=== PATIENT | female | born 1965 | race Caucasian/White ===

== ENCOUNTER → 2023-10-02 14:39 | Outpatient (BNVA) | payer OTHER, SELFPAY | PROVIDERS: Visit Provider Nurse Practitioner | DX: I48.91 Unspecified atrial fibrillation (principal) ==

== ENCOUNTER → 2023-10-16 13:54 | Outpatient (REF) | payer OTHER, SELFPAY | LOC: HO.SL 13:54 | PROVIDERS: Visit Provider Nurse Practitioner | DX: Z13.89 Encounter for screening for other disorder (principal) ==

== ENCOUNTER → 2023-11-27 13:34 | Outpatient (BNVA) | payer OTHER, SELFPAY | PROVIDERS: PCP Internal Medicine ==

== ENCOUNTER → 2023-12-04 14:24 | Outpatient (BNVA) | payer OTHER, SELFPAY | PROVIDERS: PCP Internal Medicine; Visit Provider Physician Assistant ==

== ENCOUNTER → 2024-03-09 11:24 | Outpatient (BNV) | payer OTHER, SELFPAY | PROVIDERS: PCP Physician Assistant; Visit Provider Radiology Diagnostic Radiology | DX: N28.1 Cyst of kidney, acquired (principal) | CPT/HCPCS: 76775 ==

== ENCOUNTER 2024-04-13 18:20 | Emergency (ER) | payer OTHER, SELFPAY ==
--- NOTE | ~2024-04-13 | XR_ITS ---
CLINICAL HISTORY: cough, fever, chills 2 view chest x-ray Comparison: CR/SR - XR CHEST 2V - 09/23/23 12:03 EDT Findings: No consolidation or effusion. Heart size is normal. No acute fracture. IMPRESSION: 1. No acute findings. This document has been electronically signed by: Guillermo Smith MD on 04/13/2024 20:25:23
[2024-04-13 18:54] VITALS: BP 130/70; BP 161/101; PULSE 86; PULSE 90; RESP 18; TEMP 36.3; O2SAT 100; O2SAT 99; BMI 27.9
--- NOTE | 2024-04-13 19:31 | ED_ITS ---
HPI - URI/Sore Throat General Chief Complaint: Upper Respiratory Symptoms Stated Complaint: n/v, gen sickness, sweating shivering Time Seen by Provider: 04/13/24 19:26 Source: patient and EMS Mode of arrival: EMS Limitations: no limitations History of Present Illness ED Provider: Fela Gloria NP HPI Narrative: Patient is a 58-year-old female who presents emergency department via EMS for evaluation of ?symptoms?. She admits that she woke up this morning feeling generally unwell was experiencing sinus congestion, headache, body aches, joint pain, a nonproductive cough, tactile fever, chills, nausea, single episode of small clear emesis. She denies dizziness, lightheadedness, vision changes, neck pain, chest pain, shortness of breath, abdominal pain, diarrhea or constipation, genitourinary symptoms, numbness or tingling of the extremities. She states that her spouse as well as a co-worker been ill with similar symptoms but ?I always get it worse . Related Data Home Medications ?Medication ?Instructions ?Recorded ?Confirmed multivitamin 1 tab PO DAILY 12/04/23 01/07/24 Previous Rx's ?Medication ?Instructions ?Recorded aspirin 81 mg capsule 81 mg PO DAILY #30 caps 08/11/23 cyclobenzaprine 10 mg tablet 10 mg PO TID PRN muscle spasm 30 12/04/23 days #90 tabs folic acid 1 mg tablet 1 mg PO DAILY #30 tabs 01/23/24 prednisone 20 mg tablet See Rx Instructions PO DAILY #18 03/12/24 tabs diltiazem HCl 120 mg 120 mg PO DAILY 90 days #90 caps 03/29/24 capsule,extended release 24 hr (Cardizem CD) Allergies Allergy/AdvReac Type Severity Reaction Status Date / Time bee pollen [bee stings] Allergy Anaphylaxis Verified 04/13/24 19:01 peanut Allergy Anaphylaxis Verified 04/13/24 19:01 Review of Systems 2 Review of Systems: Yes all other systems are reviewed and are negative PMFSH Past Medical History Attestation statement: The following information was validated with the patient. Source: old records reviewed Medical History Low back pain radiating to lower extremity Atrial fibrillation Family History Family History Son Atrial fibrillation Social History Social History Household Members: Significant Other Housing: House Alcohol intake: current Alcohol intake frequency: holidays/special occasions only Alcohol type: beer Patient Tobacco Use Status: Never used Tobacco e-Cigarette/Vaping Use: Never Used Substance Use Type: Marijuana Advance Directives: No Advance Directives Information Provided: No Do you have a plan to hurt others: No Plan service: No Current occupational status: employed Current occupation: Customer service Current occupational exposures/hazards: No Cognitive needs: No Hearing needs: No Vision needs: Yes (glasses) Physical Exam 2 Vital Signs: Vital Signs: Last Vital Signs Temp 97.2 F 04/13/24 23:49 Pulse 92 04/13/24 23:49 Resp 20 04/13/24 23:49 BP 101/74 04/13/24 23:49 Pulse Ox 98 04/13/24 23:49 O2 Del Method Room Air 04/13/24 23:49 BMI result Body Mass Index 27.9 Appearance: Alert.?Oriented to person, place and time. No acute distress.?Normal affect. Eyes: Pupils equal, round and reactive to light.? ENT: TM normal bilaterally. Pharynx normal.?? Neck: Normal inspection.? Neck supple.??No cervical adenopathy CVS: Heart sounds normal. Normal heart rate and rhythm.? Pulses normal.?? Respiratory: No respiratory distress.? Lung sounds clear to auscultation bilaterally?? Abdomen: Soft and non-tender. Normoactive bowel sounds. Skin: Skin warm and dry.? Normal skin color.? ? Extremities: No lower extremity edema.? Neuro: Moves all extremities spontaneously. Sensation intact bilaterally. No motor deficits. Ambulates with normal steady gait. Medications Administered Discontinued Medications Generic Name Dose Route Start Last Admin Trade Name Freq PRN Reason Stop Dose Admin Sodium Chloride 1,000 mls @ 999 mls/hr 04/13/24 20:00 04/13/24 21:30 Ns IV 04/13/24 21:00 Infused .Q1H1M BRYCE Infusion Potassium Chloride 10 meq in 100 mls @ 100 mls/hr 04/13/24 20:43 04/13/24 22:02 Potassium Chloride/H20 IV 04/13/24 21:42 0 mls/hr ONCE ONE Infusion Ketorolac Tromethamine 15 mg 04/13/24 19:50 04/13/24 20:13 Ketorolac Tromethamine 15 Mg/Ml Vial IVPUSH 04/13/24 19:51 15 mg ONCE ONE Administration Ondansetron HCl 4 mg 04/13/24 19:50 04/13/24 20:13 Ondansetron Hcl 4 Mg/2 Ml Vial IVPUSH 04/13/24 19:51 4 mg ONCE ONE Administration Potassium Chloride 40 meq 04/13/24 20:43 04/13/24 21:33 Potassium Chloride Packet 20 Meq Packet PO 04/13/24 20:44 40 meq ONCE ONE Administration Medical Decision Making Medical Decision Making [facility] Narrative: Patient is a a 58-year-old female past medical history of atrial fibrillation presents emergency department for evaluation of flu-like symptoms as per HPI. Overall she appears anxious, she is mildly hypertensive, she is afebrile without tachycardia tachypnea or hypoxia. LS CTA. Benign abdominal examination. COVID-19/influenza/RSV testing is negative. At this time history and physical exam not consistent with ACS/PE. CXR was obtained in his without consolidation or infiltrate to suggest pneumonia Well-appearing, nontoxic, afebrile, no tachycardia or tachypnea/hypoxia. Speaking clear full sentences, ambulatory with steady gait. Concern for viral syndrome, lower suspicion for acute abdominal pathology. CBC is without leukocytosis anemia, mild thrombocytopenia. Initially hypokalemic at 3.0, replaced with 10 mEq IV, 40 mEq p.o., initial metabolic acidosis which had improved after receiving IV fluids, potassium. No TRINIDAD. Chronic stable mildly elevated LFTs with benign abdominal examination low suspicion for acute hepatobiliary etiology. Lipase within normal range. Urinalysis without evidence of infection or microscopic hematuria. She is tolerating oral intake at this time requesting discharge home which I feel is reasonable. Pain has improved after receiving Toradol IV. Discussed conservative treatment including rest, hydration, Tylenol/ibuprofen as needed for fever and body aches, saline nasal spray, humidifier, nock-uzo-mihfblm cold medication. Advised to follow-up with primary care provider as needed, discussed reasons to return back to the emergency department. All questions were answered. Patient discharged home in stable condition. Provided with a return to work/school note. Differential Diagnosis Differential Diagnoses: The differential diagnosis associated with the presentation includes ( See narrative above) Admission/Observation Consideration of admission/observation: Escalation of care including admission/observation considered ( see narrative above) Lab Data MDM Lab Attestation statement: I reviewed the patient's lab results. ( see narrative above) 04/13/24 19:45 04/13/24 23:36 Labs: Lab Results 04/13/24 04/13/24 Range/Units 19:45 23:36 WBC 6.3 (4.8-10.8) X10*3/uL RBC 4.56 (4.20-5.50) X10*6/uL Hgb 15.6 (12.0-16.0) g/dl Hct 43.0 (37.0-47.0) % MCV 94.3 (80.0-98.0) fL MCH 34.2 H (27.0-33.0) pg MCHC 36.3 H (31.0-35.0) g/dl RDW 13.9 (11.0-16.0) % Plt Count 136 L D (160-400) X10*3/uL MPV 9.5 (9.4-12.3) fL Immature Gran % (Auto) 0.3 (0.0-0.4) % Neut % (Auto) 77.2 H (45-73) % Lymph % (Auto) 8.6 L (20-40) % Person % (Auto) 12.4 H (2-11) % Eos % (Auto) 0.5 (0-4) % Baso % (Auto) 1.0 (0-2) % Lymph # (Auto) 0.5 L (1.2-4.9) X10*3/uL Person # (Auto) 0.8 (0.1-1.2) X10*3/uL Eos # (Auto) 0.0 (0.0-0.4) X10*3/uL Baso # (Auto) 0.1 (0.0-0.2) X10*3/uL Abs Immat Gran (auto) 0.02 (0.00-0.03) X10*3/uL Absolute Neuts (auto) 4.9 (2.0-8.3) x10*3/uL Absolute Nucleated RBC 0.000 (0.0-0.012) X10*3/uL Nucleated RBC % (auto) 0.0 (0.0-0.2) /100WBC Sodium 146 H 145 (135-145) mmol/L Potassium 3.0 L 3.3 (3.3-5.1) mmol/L Chloride 110 H 111 H (96-108) mmol/L Carbon Dioxide 18 L 19 L (22-29) mmol/L Anion Gap 21 H 18 (12-20) BUN 5 L 6 L (9-16) mg/dL Creatinine 0.65 0.66 (0.5-1.4) mg/dL Estim Creat Clear Calc 117.3 115.5 Estimated GFR > 60 > 60 Random Glucose 91 104 (60-115) mg/dL Calcium 9.2 8.9 (8.4-10.2) mg/dL Total Bilirubin 1.3 H (0.0-1.0) mg/dL AST 76 H (5-31) U/L ALT 41 H (0-31) U/L Alkaline Phosphatase 110 (39-117) U/L Total Protein 8.1 H (6.5-8.0) g/dL Albumin 4.2 (3.5-5.0) g/dL Lipase 20 (8-78) U/L Urine Color Yellow Urine Appearance Clear Urine pH 8.0 (5.0-9.0) Ur Specific [place] 1.020 (1.005-1.025) Urine Protein 30 (1+) H (Neg-Trace) mg/dL Urine Glucose (UA) Negative (Negative) mg/dL Urine Ketones 40 (Negative) mg/dL Urine Blood Negative (Negative) Urine Nitrite Negative (Negative) Ur Leukocyte Esterase Negative (Negative) Urine RBC 0-2 (0-2) /HPF Urine WBC 0-5 (0-5) /HPF Ur Squamous Epith Cells 0-2 (0-2) /HPF Urine Bacteria None Seen (None Seen) Hyaline Casts >20 (0-2) /LPF Influenza Type A (PCR) NEGATIVE (Negative) Influenza Type B (PCR) NEGATIVE (Negative) RSV RNA Qual (PCR) NEGATIVE (Negative) SARS-CoV-2 RNA (RT-PCR) NEGATIVE (Negative) Independent Interpretation I performed an independent interpretation of an: Plain X-Ray (See narrative above) Radiology Impression Discussion of test interpretation with radiology: I have reviewed the radiologist's reading. Radiologist Impression: 2 view chest x-ray Comparison: CR/SR - XR CHEST 2V - 09/23/23 12:03 EDT Findings: No consolidation or effusion. Heart size is normal. No acute fracture. IMPRESSION: 1. No acute findings. Independent Historian Clinical information obtained from an independent historian. History obtained from or confirmed by: Spouse and EMS External Record Review External record reviewed: Outpatient record Prescription Management I considered prescription management with: Pain Medication ( acetaminophen/ibuprofen) Chronic Conditions Patient?s care impacted by: Other (See narrative above) Discharge Plan Discharge Clinical Impression: Acute viral syndrome Patient Disposition: Home, Self-Care Instructions: Viral Syndrome (ED) Additional Instructions: Be sure to rest, stay well hydrated drinking plenty of fluids, eat small frequent meals. Tylenol/ibuprofen can be used as needed for fever/pain. Aktj-mrg-hyqjzij cold medications may be helpful as well for symptoms. Saline nasal spray, humidifier may be helpful for nasal congestion. Introduce a bland diet including crackers, bananas, rice, soup, toast, and boiled vegetables. This may progress to plain baked or boiled chicken or turkey. Avoid dairy products or foods high in fat or grease. You may return to the emergency department with any new or worsening symptoms or concerns. Follow-up with your primary care provider as needed. Should remain out of school/ work until symptoms have resolved and have been without a fever for 24 hours without the use of Tylenol or ibuprofen. Prescriptions: No Action prednisone 20 mg tablet See Rx Instructions PO DAILY Qty: 18 0RF Rx Instructions: take 3 tab po x 3 days, take 2 tab po x 3 days, 1 tab po x 3 days diltiazem HCl [Cardizem CD] 120 mg capsule,extended release 24hr 120 mg PO DAILY 90 Days Qty: 90 1RF aspirin 81 mg capsule 81 mg PO DAILY Qty: 30 0RF folic acid 1 mg Tablet 1 mg PO DAILY Qty: 30 3RF multivitamin Tablet 1 tab PO DAILY cyclobenzaprine 10 mg tablet 10 mg PO TID PRN (Reason: muscle spasm) 30 Days Qty: 90 1RF Referrals: Joyce Salvador MD [Primary Care Provider] - Stand Alone Forms: Work/School Release Print Language: Azeri
[2024-04-13 19:52] LABS: MANUAL DIFF FLAG NO
[2024-04-13 19:56] LABS: Basophils Absolute Auto 0.1 X10*3/uL (0.0-0.2); Eosinophils Percent Auto 0.5 % (0-4); Hemoglobin 15.6 g/dl (12.0-16.0); Imm Gran Abs Auto 0.02 X10*3/uL (0.00-0.03); Imm Gran Pct Auto 0.3 % (0.0-0.4); Lymphocytes Absolute Auto 0.5 X10*3/uL (1.2-4.9); Lymphocytes Percent Auto 8.6 % (20-40); Mean Corpuscular HGB Conc 36.3 g/dl (31.0-35.0); Mean Corpuscular Hemoglobin 34.2 pg (27.0-33.0); Mean Corpuscular Volume 94.3 fL (80.0-98.0); Mean Platelet Volume 9.5 fL (9.4-12.3); Monocytes Absolute Auto 0.8 X10*3/uL (0.1-1.2); Monocytes Percent Auto 12.4 % (2-11); Neutrophils Absolute Auto 4.9 x10*3/uL (2.0-8.3); Neutrophils Percent Auto 77.2 % (45-73); Platelet Count 136 X10*3/uL (160-400); Red Blood Count 4.56 X10*6/uL (4.20-5.50); Red Cell Distribution Width 13.9 % (11.0-16.0); White Blood Count 6.3 X10*3/uL (4.8-10.8)
[2024-04-13 20:00] LABS: Appearance Urine Clear; Color Urine Yellow; Glucose Urine UA Negative (Negative); Leukocyte Esterase Urine Negative (Negative); Nitrite Urine Negative (Negative); UMIC TRIGGER UACC YES; Urine Blood Negative (Negative); Urine Ketones 40 mg/dL (Negative); Urine Protein 30 (1+) mg/dL (Neg-Trace)
[2024-04-13] MEDS: Ketorolac Tromethamine 15 MG/ML VIAL IVPUSH (20:13)
[2024-04-13] MEDS: ondansetron HCL 4 MG/2 ML VIAL IVPUSH (20:13)
[2024-04-13] MEDS: 0.9 % Sodium Chloride 1,000 ML 999 ML IV (20:16)
[2024-04-13 20:18] LABS: Alanine Aminotransferase 41 U/L (0-31); Albumin Level 4.2 g/dL (3.5-5.0); Alkaline Phosphatase 110 U/L (39-117); Anion Gap 21 (12-20); Aspartate Amino Transferase 76 U/L (5-31); Bilirubin Total 1.3 mg/dL (0.0-1.0); Blood Urea Nitrogen 5 mg/dL (9-16); Calcium 9.2 mg/dL (8.4-10.2); Carbon Dioxide 18 mmol/L (22-29); Chloride 110 mmol/L (96-108); Creatinine Clr Calc Pharmacy 117.3; Estimated Glomerular Filt Rate > 60; Glucose Random 91 mg/dL (60-115); Lipase 20 U/L (8-78); Sodium 146 mmol/L (135-145); Total Protein 8.1 g/dL (6.5-8.0)
[2024-04-13 20:22] LABS: Bacteria Urine None Seen (None Seen); Hyaline Casts Urine >20 /LPF (0-2); RBC Urine 0-2 /HPF (0-2); Squamous Epithelial Cell Urine 0-2 /HPF (0-2); WBC Urine 0-5 /HPF (0-5)
[2024-04-13 20:33] LABS: Influenza A PCR NEGATIVE (Negative); Influenza B PCR NEGATIVE (Negative); Resp Syncy Virus RNA Qual PCR NEGATIVE (Negative); SARS COV2 PCR INHOUSE NEGATIVE (Negative)
[2024-04-13] MEDS: Potassium Chloride/H20 10 MEQ/100 ML PIGGYBACK 100 MEQ IV (21:33)
[2024-04-13] MEDS: Potassium Chloride Packet 20 MEQ PACKET 40 MEQ PO (21:33)
--- NOTE | 2024-04-13 22:02 | PC.NURSE ---
pt unable to tolerate IV potassium. provider aware. paused at this time
[2024-04-13 23:49] VITALS: BP 101/74; PULSE 92; RESP 20; TEMP 36.2; O2SAT 98
[2024-04-13 23:58] LABS: Anion Gap 18 (12-20); Blood Urea Nitrogen 6 mg/dL (9-16); Calcium 8.9 mg/dL (8.4-10.2); Carbon Dioxide 19 mmol/L (22-29); Chloride 111 mmol/L (96-108); Creatinine Clr Calc Pharmacy 115.5; Estimated Glomerular Filt Rate > 60; Glucose Random 104 mg/dL (60-115); Potassium 3.3 mmol/L (3.3-5.1); Sodium 145 mmol/L (135-145)
[2024-04-14 00:33] VITALS: BP 101/74; PULSE 92; RESP 20; TEMP 36.2; O2SAT 98
== END 2024-04-14 00:34 | disposition home or self-care (01) ==
PROVIDERS: Emergency Medicine; Nurse Practitioner Family; Emergency Provider Emergency Medicine; PCP Internal Medicine
DX: B34.9 Viral infection, unspecified (principal); R05.9 Cough, unspecified; I48.91 Unspecified atrial fibrillation; Z03.818 Encounter for observation for suspected exposure to other biological agents ruled out
CPT/HCPCS: 0241U; 36415; 71046; 80048; 80053; 81001; 81003; 83690; 85025; 96361; 96365; 96375; 99284; J1885; J2405; J3480

== ENCOUNTER → 2024-04-13 19:25 | Outpatient (BNV) | payer OTHER, SELFPAY | PROVIDERS: Emergency Provider Emergency Medicine; PCP Internal Medicine; Visit Provider Radiology Diagnostic Radiology | DX: R05.9 Cough, unspecified (principal) | CPT/HCPCS: 71046 ==

== ENCOUNTER 2024-06-14 14:02 | Outpatient (AMB) | payer OTHER, SELFPAY ==
--- OUTSIDE RECORDS SUMMARY | 2024-06-14 14:04 | XMS_ITS | Data Portability ---
Author Organization [facility], [address] Address [address] [place] [address] Assessment No assessment recorded. Plan of Treatment Reminders Order Date Submit Date Provider Last Modified By Organization Details Last Modified Time Details Appointments None recorded. Lab rapid flu (A+B) 2022 023 20999_[facility], [address] [place] [address], [id number], 3 12:17:04 SARS CoV 2 (COVID-19) Ag, QL, IA, upper respiratory specimen 2022 023 20999_[facility], [address] [place] [address], [phone], 3 12:17:03 Referral None recorded. Procedures None recorded. Surgeries None recorded. Imaging XR, chest, 2 view 2022 023 [email or web address] [facility], [address] [place] [address] Rd, [address], [place], [address], 4 08:29:11 Medication Orders cyclobenzap rine [address] [facility] ([place] [place]Pharmacy #[id number], [address] [place], [address], 4 12:01:51 Medrol (Jorge) 4 mg tablets in a dose pack [address] [facility] ([place] [place]Pharmacy #[id number], [address] [place], [address], 4 12:01:47 benzonatate 200 mg capsule 2022 024 [facility], [address] [place] [address], [address], 4 11:24:42 loratadine 10 mg tablet 2022 024 [facility], [address] [place] [address], [address], 4 11:24:46 albuterol sulfate HFA 90 mcg/actuati on aerosol inhaler 2022 023 [facility], [address] [place] [address], [address], 4 11:24:35 doxycycline hyclate 100 mg capsule 2022 024 [facility], [address] [place] [address], [address], 4 11:24:48 Patient TargetsNo targets recorded. Patient Instructions Encounter Date Encounter Id Patient Instructions Last Modified By Organization Details Last Modified Time 11/20/2022 [id number] acute bronchitis education [email or web address] Not available 11/20/2022 12:17:00 bronchitis: care instructions [email or web address] Not available 11/20/2022 12:17:00 Acute bronchitis is a common clinical condition characterized by an acute onset but persistent cough, with or without sputum production. It is typically self-limited, resolving within one to three weeks. Symptoms result from inflammation of the lower respiratory tract and are most frequently due to viral infection. However, with that said, we have ordered a Chest xray to rule out Pneumonia. This will have to be done from another clinic. A form will be provided. Please get that done today. I will place you on an Antibiotic in the meantime. Treatment is focused on patient education and supportive care. Antibiotics are not needed for the great majority of patients with acute bronchitis but are greatly overused for this condition. Reducing antibiotic use for acute bronchitis is a national and international health care priority. In most patients, the cough persists for 1 to 3 weeks, with a average duration of 18 days. The cough may be associated with either purulent or nonpurulent sputum production The presence of purulent sputum is a nonspecific finding and does not appear to be predictive of bacterial infection or that antibiotics are needed. For the great majority of patients, use of antibiotics does not hasten recovery or prevent complications but puts patients at increased risk of adverse effects including potentially severe complications such as Clostridioides difficile infection and anaphylaxis. Non-Pharmacological treatment for coughin. Throat lozenges 2. Hot tea 3. Honey 4. Smoking cessation 5. Avoidance of secondhand smoke. Pharmacological Treatment: 1. Robatussin or Guafenasin 2. Antihistamines 3. Dextromethoraphen I would plan on being seen again if any of the following symptoms develop: 1. Fever (100.5) 2. Shortness of breath 3. Wheezing 4. Worsening Cough. I would go to the ER if you develop: 1. Severe Shortness of breath 2. Chest Pain 3. Wheezing 4. Coughing up Blood [email or web address] Not available 11/20/2022 14:51:56 10/19/2023 [id number] muscle strain: c are instructions [email or web address] Not available 10/19/2023 11:40:11 Reason for Referral None Reported. Results Created Date Observation Date Name Description Value Unit Range Abnormal Flag Note LastModifiedBy Organization Detail LastModifiedTime 11/21/1911/20/2022 SARS CoV 2 (COVI D-19) Ag, QL, IA, upper respi rator y speci men Unknown Analyte negati ve Not Available [facility] [address] [place], [address], 11/20/2022 11:53:34 11/21/1911/20/2022 SARS CoV 2 (COVI D-19) Ag, QL, IA, upper respi rator y speci men Unknown Analyte yes Not Available [email or web address] [place], [address], 11/20/2022 11:53:34 11/21/19 23 11/20/2022 rapid flu (A+B) Unknown Analyte negati ve Not Available [facility] [address] [place], [address], 11/20/2022 11:55:43 11/21/1911/20/2022 rapid flu (A+B) Unknown Analyte negati ve Not Available _[facility] [address] [place], [address], 11/20/2022 11:55:43 11/21/1911/20/2022 rapid flu (A+B) Unknown Analyte yes Not Available _ [facility] [address] [place], [address], 11/20/2022 11:55:43 Result Notes None recorded. Problems No Known Problems Medical Equipment None Reported. Allergies No known drug allergies Medications Name Sig Start Date Stop Date Status Note LastModified by Organization Details LastModified Time cyclobenzap rine 10 mg tablet Take 1 tablet twice a day by oral route as needed for 5 days. 2023 active Not Available Not Available Not Avai lable doxycycline hyclate 100 mg capsule Take 1 capsule twice a day by oral route for 7 days. 10/18 completed Not Available Not Available Not Available benzonatate 200 mg capsule Take 1 capsule 3 times a day by oral route. 10/18 completed Not Available Not Available Not Available Medrol (Jorge) 4 mg tablets in a dose pack 1 dose pack as needed 2023 active Not Available Not Available Not Avai lable albuterol sulfate HFA 90 mcg/actuati on aerosol inhaler Inhale 2 puffs every 4 hours by inhalatio n route. 10/18 completed Not Available Not Available Not Available loratadine 10 mg tablet Take 1 tablet every day by oral route for 14 days. 10/18 completed Not Available Not Available Not Available folic acid active Not Available Not Av ailable Not Available diazepam active Not Available Not Avai lable Not Available Vitals Date Recorded Body height Body mass index (BMI) Body weight Respiratory rate Body temperature Oxygen saturation Oxygen saturation in Arterial blood by Pulse oximetry Heart rate Systolic blood pressure Diastolic blood pressure Provider Name and Address Organization Details Last Updated DateTime 3 180.34 cm 32.1 kg/m2 867730. 25 g 18 /min 97.7 [degF] 97 % 97 % 94 /min 149 mm[Hg] 96 mm[Hg] AMINATA MIGUE PA - [facility] 3 11:55:12 Date Recorded Body height Body mass index (BMI) Body weight Oxygen saturation Oxygen saturation in Arterial blood by Pulse oximetry Body temperature Respiratory rate Heart rate Systolic blood pressure Diastolic blood pressure Provider Name and Address Organization Details Last Updated DateTime 4 180.34 cm 28.5 kg/m2 43453.8 4 g 99 % 99 % 97.3 [degF] 18 /min 77 /min 118 mm[Hg] 83 mm[Hg] Kiki Mccray PA - [facility] 4 11:24:07 Social History Question Answer Notes LastModified by [employer] ion Details LastModified Time Tobacco Smoking Status Never Smoker AMINATA armenta PA - [facility] 11/20/2022 11:53:17 What Is Your Level Of Alcohol Consumption? None [email or web address] Information not available 11/20/2022 Are You Currently Employed? Yes [email or web address] Information not available 10/19/2023 Do You Use Any Illicit Or Recreational Drugs? No [email or web address] Information not available 11/20/2022 Have You Recently Traveled Abroad? No [email or web address] Information not available 11/20/2022 Do You Or Have You Ever Used Any Other Forms Of Tobacco Or Nicotine? No [email or web address] Information not available 11/20/2022 Sex: Unknown Functional Status None recorded. Mental Status None recorded. Family History Relationship Description Onset Age of this Age Resolved Age Notes LastModified by Organization Details LastModified Time Father No current problems or disability [email or web address] Not available 11/20 11:53:01 Mother No current problems or disability [email or web address] Not available 11/20 11:53:01 Medical History No medical history recorded. Gynecological History Statement/Question Response Date of LMP Obstetrics History GPAL:G 0 P 0 0 0 0 Past Encounters Encounter ID Performer Location Encounter Start Date Encounter Closed Date Diagnosis/Indication Diagnosis SNOMED-CT Code Diagnosis ICD10 Code Diagnosis Note [id number] [address] [place] [address] 06/28/2021 18:02:49 06/28/2021 20:02:40 [id number] KEMAL MONREAL [address] [place] [address] 11/20/2022 11:32:39 11/20/2022 12:21:04 Exposure to SARS-CoV-2 251908931 Z20.822 Cough 90763734 R05.9 Acute bronchitis 3125378 2 J20.9 [id number] Holland Harper MD [address] [place] [address] 10/19/2023 11:14:26 10/19/2023 11:41:21 Spasm of muscle of lower back 5133069794 4354005 M62.830 Discussed red flags of lower back pain, including incontinen ce , saddle parasthesi a and loss of power.Foll ow up with PCP regarding PT You are being prescribed a Steroid. You must take this with food. While on a Steroid, you should not take Ibuprofen or any other NSAID because this will cause stomach irritation . Please follow up with PCP or Urgent Care in 3-5 days if no improvemen t or if any new symptoms occur that are concerning .Call 911 or go to nearest ER if you develop any shortness of breath, chest pain, severe headache, dizziness, or other concerning symptoms Health Concerns Section Related Observation LastModified by Organization Detai ls LastModified Time None Recorded Concern Status LastModified by Organization Details LastModified Time None Recorded Advance Directives Directive None Recorded Payers Encounter Date Sequence Insurance Name Policy Number Policy Parker Covered Member ID Parker Member ID Guarantor Name 06/28/2021 1 [facility] [id number] Alie Corina [id number] Alie Corina 11/20/2022 1 [facility] [id number] Alie Corina [id number] Alie Corina 10/19/2023 1 [facility] [id number] Alie Corina [id number] Alie Corina Notes Date Note Type Note Provider Name and Address Organization Details Recorded Time 09/27/202 3 text/html COVID-19 SymptomsReported bypatient.Notes:57 y.o female pt with no significant medical problems presents with cough and congestion x 3 days. Pt denies SOB, FEVER OR CHEST PAIN. Pt speaking and swaloowing normal. She is in no acute distress KEMAL MONREAL [address] [place], [address], [place] - [facility] 11/20/2022 14:52:13 4 text/html Back Pain / InjuryReported bypatient.source of patient informationInformation obtained from patient; Patient arrived at Urgent Care ambulatory Quality:muscle spasms Duration:3 days; 1 weeks Context:atraumatic Previous InjuryNo prior injury to affected body part Holland Harper MD [address] [place], [address], [place] - [facility] 10/19/2023 16:33:04 OBGyn Episode No OBEpisode recorded.
--- NOTE | 2024-06-14 14:06 | MHC.OFFWIV ---
Intake Vital Signs 06/14/24 14:07 BP 160/90 H Blood Pressure Location Lt brachial Position Sitting Pulse 96 Pulse Source Pulse Oximeter Pulse Oximetry (%) 99 Oxygen Delivery Method Room Air Intake Visit Reasons: EP lightheaded, shaking, sob, sweats Patient Tobacco Use Status: Never used Tobacco Allergies bee pollen [BEE STINGS] Allergy (Unknown, Unverified 04/21/24 12:37) Swelling Peanut Butter Allergy (Unknown, Verified 04/21/24 12:37) Swelling, Itching peanut Allergy (Verified 04/21/24 12:37) Anaphylaxis HPI HPI Comments History of Present Illness Details History of Present Illness - The patient is a 58-year-old female past med hx of afib not on a blood thinner, hemachromatosis and polycythemia presenting with shortness of breath, lightheadedness, and other cardiac-related symptoms. - She reports a sudden onset of feeling shaky, sweaty, and experiencing tingling sensations in her fingers and face. - Denies overt chest pain. - There is a known history of Atrial Fibrillation however she is not on a blood thinner - The patient describes feeling as if she is about to collapse, a sensation accompanied by pins and needles. - She drove herself to the clinic today. Physical Exam General: Cooperative, diaphoretic, comfortable, in mild acute distress and well developed Orientation: Patient oriented x3 Limitations: No limitations Head: Normal to inspection Ears: Hearing grossly normal bilaterally Nose: Normal External nose present Face and sinus: Normal facial exam Eyes: Appearance normal, both eyes and all related structures Neck: Normal visual inspection and Yes full ROM Respiratory: mild resp distress, speaking in short sentences. Clear to auscultation bilaterally Cardiovascular: Regular rate and rhythm. Normal S1 and S2 Skin: Sweaty, no rashes or lesions noted Neuro: Patient oriented x3, tingling in fingers Extremities: Normal to inspection, fingers cramping up [facility] Medical History (Updated 06/14/24 @ 14:35 by Adriana Garcia PA-C) Low back pain radiating to lower extremity Atrial fibrillation Family History (System 04/21/24 @ 12:37 by Adriana Nuñez) Son Atrial fibrillation Social History (System 04/21/24 @ 12:37 by Adriana Nuñez) Household Members: Significant Other Housing: House Alcohol intake: current Alcohol intake frequency: holidays/special occasions only Alcohol type: beer Patient Tobacco Use Status: Never used Tobacco e-Cigarette/Vaping Use: Never Used Substance Use Type: Marijuana service: No Current occupational status: employed Current occupation: Customer service Current occupational exposures/hazards: No Cognitive needs: No Hearing needs: No Vision needs: Yes (glasses) Review of Systems Const All systems reviewed & are unremarkable except as noted in HPI and below Physical Exam Vital Signs: Last Vital Signs Pulse 96 06/14/24 14:07 BP 160/90 H 06/14/24 14:07 Pulse Ox 99 06/14/24 14:07 Oxygen Delivery Method Room Air 06/14/24 14:07 Assessment & Plan Assessment & Plan (1) Shortness of breath: Code(s): R06.02 - Shortness of breath Plan: BP 160/90 but other VSS. Difficult to get clear EKG as pt shaking and unable to sit still. Hands began cramping and she is feeling worse so difficult to perform through exam. EKG states septal infarct but I do not see it on the EKG. Given the constellation of symptoms of nausea, diaphoresis, pre-syncopal feeling, shortness of breath, numbness and tingling (and now cramping) of her bilateral hands, we have called 911 to transfer the patient to the ED. I also gave her 325mg chewable aspirin. Patient was informed and verbally consented to the use of an ambient scribe for clinic note documentation during this visit. Coding Level of Care Code Est Pt Level 5 (28871) Diagnoses Shortness of breath R06.02
[2024-06-14 14:07] VITALS: BP 160/90; PULSE 96; O2SAT 99
== END 2024-06-14 14:42 | disposition home or self-care (01) ==
PROVIDERS: PCP Internal Medicine; Visit Provider Physician Assistant
DX: R06.02 Shortness of breath (principal)

== ENCOUNTER → 2024-06-14 14:02 | Outpatient (BNVA) | payer SELFPAY | PROVIDERS: PCP Internal Medicine; Visit Provider Physician Assistant | DX: R06.02 Shortness of breath (principal); I48.91 Unspecified atrial fibrillation; E83.119 Hemochromatosis, unspecified; D75.1 Secondary polycythemia | CPT/HCPCS: 93005 ==

== ENCOUNTER 2024-06-14 15:00 | Inpatient (IN) | payer OTHER, SELFPAY ==
[2024-06-14] VITALS (15 sets, daily range): BP systolic 109–170; BP diastolic 74–113; PULSE 72–178; RESP 17–33; TEMP 36.5–36.9; O2SAT 98–100; BMI 30.4
--- NOTE | 2024-06-14 | ECG_ITS ---
Test Reason : TACHYCARDIA Blood Pressure : */* mmHG Vent. Rate : 140 BPM Atrial Rate : * BPM P-R Int : * ms QRS Dur : 84 ms QT Int : 280 ms P-R-T Axes : * 29 55 degrees QTcB Int : 427 ms Atrial fibrillation with rapid ventricular response Septal infarct , age undetermined Abnormal ECG When compared with ECG of 14-Jun-2024 15:20, Atrial fibrillation has replaced Sinus rhythm Vent. rate has increased by 65 bpm Septal infarct is now Present ST now depressed in Anterolateral leads Referred By: Albertina Nunez Electronically Signed By: MACEY IQBAL
--- NOTE | ~2024-06-14 | CT_ITS ---
CLINICAL HISTORY: near syncope, hx of afib CT ANGIOGRAPHY CHEST WITH CONTRAST. 3D POSTPROCESSING. Comparison: None Findings: The heart size is normal. RV/LV ratio is normal. No thoracic aortic aneurysm or dissection. Enlarged pulmonary artery, 3.6cm diameter at the bifurcation. This can be seen with pulmonary artery hypertension. No pulmonary arterial filling defect. Small thyroid gland. No lymphadenopathy. No consolidation, pleural effusion or pneumothorax. Surface nodularity in the liver suggests cirrhotic morphology. Cholelithiasis. The bones are intact. Irregularity in the manubrium appears well corticated suggesting sequela of remote trauma. IMPRESSION: 1. No pulmonary emboli. This document has been electronically signed by: Mimi Mills DO on 06/14/2024 17:21:14
--- NOTE | 2024-06-14 15:12 | ED_ITS ---
HPI - General Adult General Chief complaint: Dyspnea Stated complaint: SUDDEN SHAKEY/SWEATY/TINGLY,WEAK PER EMS Time Seen by Provider: 06/14/24 15:11 Source: patient and RN notes reviewed Mode of arrival: ambulatory Limitations: no limitations History of Present Illness ED Provider: Albertina Nunez PA-C HPI narrative: This is a 58-year-old white female, with a past medical history AFib not on blood thinner, hemochromatosis, and polycythemia, who presents emergency department with concerns for near syncopal episode which occurred this afternoon. Patient states that she was at home watching tV when when she noticed that she felt lightheaded and had a slight headache. She states that she went to go take a walk to see if her symptoms would improve with fresh air. She states that she was still not feeling well and took her blood pressure which was elevated in the 150s over 80s. She then drove herself to the walk-in clinic where she was advised to report here to the emergency room due to her symptoms and PMHx of a fib. Patient reports that while she was at the urgent care she had a sudden onset of shakiness, sweatiness, and felt tingling in her face and into her fingers. She states that she has a history of atrial fibrillation however she is not on a blood thinner at this time. She is currently on Cardizem. She described the symptom that she was having was as if she was going to collapse with a sensation accompanied by pins and needles in her BL arms. She does report that she only had a glass of milk today. And she also reports that she had 3 alcoholic beverages yesterday due to the . She denies any daily alcohol use. She denies any drug use. She does report that she uses marijuana. EMS had provided her with 4 baby aspirins. Patient reports that she never had chest pain. She states that now she was currently feeling improved, and no longer has a headache, and does not feel lightheaded anymore, she does report some tingling in her bilateral fingers. She reports she is feeling improved since her arrival in the ER. She states that she has had episodes like this in the past and she was unsure why she has this. She states that last episode was multiple months ago. She does not know when she goes into atrial fibrillation. No other complaints or concerns at this time. MD complaint: near syncope Associated symptoms: diaphoresis and headaches Related Data Home Medications ?Medication ?Instructions ?Recorded ?Confirmed multivitamin 1 tab PO DAILY 12/04/23 06/15/24 acetaminophen 500 mg tablet 1,000 mg PO Q6H PRN Pain 06/15/24 06/15/24 fluticasone propionate 50 2 spray intranasal DAILY PRN 06/15/24 06/15/24 mcg/actuation nasal allergies spray,suspension (Flonase Allergy Relief) Previous Rx's ?Medication ?Instructions ?Recorded aspirin 81 mg capsule 81 mg PO DAILY #30 caps 08/11/23 folic acid 1 mg tablet 1 mg PO DAILY #30 tabs 01/23/24 diltiazem HCl 120 mg 120 mg PO DAILY 90 days #90 caps 03/29/24 capsule,extended release 24 hr (Cardizem CD) apixaban 5 mg tablet (Eliquis) 5 mg PO BID #60 tabs 06/15/24 metoprolol succinate 25 mg 25 mg PO DAILY #30 tabs 06/15/24 tablet,extended release 24 hr (Toprol XL) Allergies Allergy/AdvReac Type Severity Reaction Status Date / Time bee pollen [BEE STINGS] Allergy Unknown Swelling Verified 06/14/24 15:11 Peanut Butter Allergy Unknown Swelling, Verified 06/14/24 15:11 Itching peanut Allergy Anaphylaxis Verified 06/14/24 15:11 Review of Systems 2 Review of Systems: Yes all other systems are reviewed and are negative Constitutional: Constitutional: Reports as per [facility] Past Medical History Attestation statement: The following information was validated with the patient. Medical History Polycythemia Hemochromatosis Low back pain radiating to lower extremity Atrial fibrillation Family History Family History Son Atrial fibrillation Social History Social History Household Members: Spouse Housing: House Alcohol intake: never Patient Tobacco Use Status: Never used Tobacco e-Cigarette/Vaping Use: Never Used Substance Use Type: Marijuana service: No Current occupational status: employed Current occupation: Customer service Current occupational exposures/hazards: No Cognitive needs: No Hearing needs: No Vision needs: Yes (glasses) Physical Exam ED Vital Signs: Vital Signs - 24 hr 06/14/24 19:38 06/14/24 19:57 Temperature 98.1 F Pulse Rate 130 H 111 H Respiratory Rate 20 Blood Pressure 109/82 133/84 Pulse Oximetry 98 Oxygen Delivery Method Nasal Cannula Oxygen Flow Rate 2 BMI result Body Mass Index 30.0 Const General: cooperative, comfortable and no acute distress Orientation/consciousness: patient oriented x3 Limitations: no limitations HENMT Head: Yes normal to inspection, Yes normocephalic and Yes atraumatic Ears: hearing grossly normal bilaterally General nose exam: Normal external nose present Face and sinus: Yes normal facial exam Mouth: Normal oral and palatal mucosa present, oropharynx normal and moist mucous membranes Throat: Yes posterior oropharynx normal Eyes General: appearance normal, both eyes and all related structures Eyelids: Yes eyelids normal Conjunctivae: conjunctivae normal Sclerae: sclerae normal Pupils: Equal, round and reactive pupils present EOM: EOMs intact bilaterally Neck Neck: Yes normal visual inspection, Yes full ROM and Yes no lymphadenopathy Lymphatic: no lymphadenopathy noted Chest Chest palpation & inspection: normal inspection of the chest Resp Effort & Inspection: normal respiratory effort and able to speak in complete sentences Auscultation: clear to auscultation bilaterally, no crackles, no rales, no rhonchi and no wheezes Cardio Rate: regular rate Rhythm: regular rhythm Heart sounds: S1 normal heart sound present and S2 normal heart sound present GI Inspection: Yes normal to inspection Skin General skin exam: no rashes or lesions noted Trauma: no lacerations or abrasions Wounds: no wounds Neuro General: patient oriented x3 and moves all extremities Cranial nerves: Yes CN's II-XII intact bilaterally and Yes Equal, round and reactive pupils present Cognition (Neuro): normal cognition Gait exam (Neuro): Normal gait present Motor exam (neuro): 5/5 motor strength present throughout and Pronator motor function not present Coordination: [id number] test normal Romberg Test: Negative Pupils: Normal pupillary reactivity/response: bilateral Extrem General: Yes normal to inspection Right upper extremity: normal to inspection Left upper extremity: normal to inspection Right lower extremity: normal to inspection Left lower extremity: normal to inspection Course Reevaluation(s) Reevaluation #1: Patient hypo magnesic at 1.5, potassium low at 3. Magnesium 2 g IV was ordered, as well as potassium. Patient became nauseous and vomited once. This triggered her to go into atrial fibrillation with RVR, rate of 140. Time: 17:44 Reevaluation #2: Patient remains to be in rapid AFib with RVR, patient admits that she did not take her Cardizem this morning, unsure if she took it yesterday. Called over to her pharmacy, who confirmed that she is on diltiazem 120 mg extended release, called over to the pharmacy, and they state that diltiazem 120 mg CD is the same. This was ordered. Discussed with my attending physician, Dr. Sparrow, who recommends second IV dose of cardizem 20mg Time: 18:03 Reevaluation #3: Patient remains to be in atrial fibrillation with RVR, rate fluctuating between 120s and 130s, discussed with Dr. Sparrow who recommends last IV push dose of cardizem 25mg IV, BP 123/87. Time: 18:46 Additional Reevaluation(s): 1908 - Pt's rate more controlled now fluctuating between 95 and 105bpm. Discussed with Dr. Sparrow, she still remains to be in atrial fibrillation. We will discuss with Cardiology. Pattern Grader Supervisor - Dr Leslie made aware, discussed with hospitalist, Dr Blackwell, transfer of care initiated Medications Administered Discontinued Medications Generic Name Dose Route Start Last Admin Trade Name Freq PRN Reason Stop Dose Admin Acetaminophen 975 mg 06/14/24 21:19 06/15/24 09:04 Acetaminophen 325 Mg Tablet PO 975 mg Q6H PRN Administration Pain, Mild 1-3,fever,headache Apixaban 5 mg 06/14/24 21:25 06/15/24 09:05 Apixaban 5 Mg Tablet PO 5 mg BID BRYCE Administration Diltiazem HCl 20 mg 06/14/24 17:36 06/14/24 17:40 Diltiazem Hcl 50 Mg/10 Ml Vial IVPUSH 06/14/24 17:37 20 mg STAT STA Administration Diltiazem HCl 120 mg 06/14/24 17:52 06/14/24 18:02 Diltiazem Hcl Cd 120 Mg Cap.Er.Deg PO 06/14/24 17:53 120 mg ONCE ONE Administration Protocol Diltiazem HCl 20 mg 06/14/24 18:02 06/14/24 18:06 Diltiazem Hcl 50 Mg/10 Ml Vial IVPUSH 06/14/24 18:03 20 mg STAT STA Administration Diltiazem HCl 25 mg 06/14/24 18:37 06/14/24 18:51 Diltiazem Hcl 50 Mg/10 Ml Vial IVPUSH 06/14/24 18:38 25 mg STAT STA Administration Sodium Chloride 1,000 mls @ 999 mls/hr 06/14/24 15:33 06/14/24 17:19 Ns IV 06/14/24 16:33 Infused .Q1H1M ONE Infusion Magnesium Sulfate 2 gm in 50 mls @ 150 mls/hr 06/14/24 17:00 06/14/24 18:18 Magnesium Sulfate/H2o IV 06/14/24 17:19 Infused ONCE ONE Infusion Lactated Ringer's 1,000 mls @ 999 mls/hr 06/14/24 17:45 06/14/24 18:58 Lr IV 06/14/24 18:45 Infused .Q1H1M BRYCE Infusion Lactated Ringer's 1,000 mls @ 999 mls/hr 06/14/24 18:35 06/14/24 19:40 Lr IV 06/14/24 19:35 Infused .Q1H1M ONE Infusion Diltiazem HCl 125 mg/ Sodium 125 mls @ 0 mls/hr 06/14/24 19:15 06/15/24 02:39 Chloride IVCONT 0 mg/hr .Q0M BRYCE 0 mls/hr Titration Protocol Per Protocol Iohexol 100 ml 06/14/24 16:42 06/14/24 16:42 Iohexol 350 Mg/Ml 100 Ml Infus..Btl IV 06/14/24 16:43 70 ml ONCE ONE Administration Ondansetron HCl 4 mg 06/14/24 21:19 06/14/24 22:48 Ondansetron Hcl 4 Mg/2 Ml Vial IVPUSH 4 mg Q8H PRN Administration Nausea and Vomiting Oxymetazoline HCl 2 spray 06/15/24 12:09 06/15/24 13:34 Oxymetazoline Hcl 0.05 % Nasal 15 Ml [place] NOSTRIL-B 06/18/24 12:09 2 spray BID PRN Administration Congestion Potassium Chloride 40 meq 06/14/24 17:04 06/14/24 17:19 Potassium Chloride Packet 20 Meq Packet PO 06/14/24 17:05 40 meq ONCE ONE Administration Sodium Chloride 3 ml 06/15/24 00:00 06/15/24 09:06 0.9 % Sodium Chloride Flush 3 Ml Syringe IVFLUSH 3 ml QSHIFT [facility] Administration Medical Decision Making Medical Decision Making [facility] Narrative: This is a 58-year-old female, with a past medical history of atrial fibrillation not currently on anticoagulation, who presents emergency department with complaints of sudden episode of shortness of breath, nausea, dizziness, diaphoresis which lasted for approximately 1 hour. She went to the [facility] and an ambulance was called. She was given aspirin and sublingual nitro. On arrival, patient well-appearing, states that her symptoms have improved. Patient denies any chest pain. No recent illness. She does report that she drank 3 alcoholic beverages last night, and only had a cup of milk. Patient is alert and oriented x4, no neurologic focal deficits on examination. EKG normal sinus rhythm with no arrhythmia or signs of atrial fibrillation. Plan: Labs, EKG, CTA Differential Diagnosis Differential Diagnoses: The differential diagnosis associated with the presentation includes Arrhythmia, atrial fibrillation, near syncope, PE, electrolyte derangement Admission/Observation Consideration of admission/observation: Escalation of care including admission/observation considered Lab Data [facility] Lab Attestation statement: I reviewed the patient's lab results. Patient with no leukocytosis, chemistry revealing hypokalemia at 3, CO2 at 16, anion gap at 23, hypomagnesemia at 1.5, he bili at 1.6, alk phos 123. Urine does not appear to be infected. Viral swabs ordered 06/15/24 06:48 06/15/24 06:48 Labs: Lab Results 06/14/24 06/14/24 06/14/24 Range/Units 15:33 16:06 16:52 WBC 7.8 (4.8-10.8) X10*3/uL RBC 4.23 (4.20-5.50) X10*6/uL Hgb 15.0 (12.0-16.0) g/dl Hct 41.0 (37.0-47.0) % MCV 96.9 (80.0-98.0) fL MCH 35.5 H (27.0-33.0) pg MCHC 36.6 H (31.0-35.0) g/dl RDW 13.4 (11.0-16.0) % Plt Count 156 L (160-400) X10*3/uL MPV 9.8 (9.4-12.3) fL Immature Gran % (Auto) 0.4 (0.0-0.4) % Neut % (Auto) 76.6 H (45-73) % Lymph % (Auto) 12.8 L (20-40) % [place] % (Auto) 9.1 (2-11) % Eos % (Auto) 0.6 (0-4) % Baso % (Auto) 0.5 (0-2) % Lymph # (Auto) 1.0 L (1.2-4.9) X10*3/uL [place] # (Auto) 0.7 (0.1-1.2) X10*3/uL Eos # (Auto) 0.1 (0.0-0.4) X10*3/uL Baso # (Auto) 0.0 (0.0-0.2) X10*3/uL Abs Immat Gran (auto) 0.03 (0.00-0.03) X10*3/uL Absolute Neuts (auto) 6.0 (2.0-8.3) x10*3/uL Absolute Nucleated RBC 0.000 (0.0-0.012) X10*3/uL Nucleated RBC % (auto) 0.0 (0.0-0.2) /100WBC Hold Blue Top SEE NOTE Sodium 143 (135-145) mmol/L Potassium 3.0 L (3.3-5.1) mmol/L Chloride 107 (96-108) mmol/L Carbon Dioxide 16 L (22-29) mmol/L Anion Gap 23 H (12-20) BUN 10 (9-16) mg/dL Creatinine 0.62 (0.5-1.4) mg/dL Estim Creat Clear Calc 123.5 Estimated GFR > 60 Random Glucose 83 (60-115) mg/dL Calcium 9.4 (8.4-10.2) mg/dL Magnesium 1.5 L (1.6-2.6) mg/dL Total Bilirubin 1.6 H (0.0-1.0) mg/dL Direct Bilirubin 0.6 H (0.0-0.5) mg/dL AST 52 H (5-31) U/L ALT 19 (0-31) U/L Alkaline Phosphatase 123 H (39-117) U/L Troponin I High Sens < 2.7 (<3.5-17.0) ng/L Total Protein 7.9 (6.5-8.0) g/dL Albumin 4.2 (3.5-5.0) g/dL Lipase 16 (8-78) U/L TSH 1.64 (0.32-4.0) uIU/mL Urine Color Yellow Urine Appearance Clear Urine pH 6.5 (5.0-9.0) Ur Specific [place] >= 1.030 H (1.005-1.025) Urine Protein 30 (1+) H (Neg-Trace) mg/dL Urine Glucose (UA) Negative (Negative) mg/dL Urine Ketones 80 (Negative) mg/dL Urine Blood Negative (Negative) Urine Nitrite Negative (Negative) Ur Leukocyte Esterase Negative (Negative) Urine RBC 0-2 (0-2) /HPF Urine WBC 0-5 (0-5) /HPF Ur Squamous Epith Cells 3-5 (0-2) /HPF Urine Bacteria Trace (None Seen) Hyaline Casts 6-10 (0-2) /LPF Influenza Type A (PCR) NEGATIVE (Negative) Influenza Type B (PCR) NEGATIVE (Negative) RSV RNA Qual (PCR) NEGATIVE (Negative) SARS-CoV-2 RNA (RT-PCR) NEGATIVE (Negative) 06/14/24 Range/Units 17:39 WBC (4.8-10.8) X10*3/uL RBC (4.20-5.50) X10*6/uL Hgb (12.0-16.0) g/dl Hct (37.0-47.0) % MCV (80.0-98.0) fL MCH (27.0-33.0) pg MCHC (31.0-35.0) g/dl RDW (11.0-16.0) % Plt Count (160-400) X10*3/uL MPV (9.4-12.3) fL Immature Gran % (Auto) (0.0-0.4) % Neut % (Auto) (45-73) % Lymph % (Auto) (20-40) % [place] % (Auto) (2-11) % Eos % (Auto) (0-4) % Baso % (Auto) (0-2) % Lymph # (Auto) (1.2-4.9) X10*3/uL [place] # (Auto) (0.1-1.2) X10*3/uL Eos # (Auto) (0.0-0.4) X10*3/uL Baso # (Auto) (0.0-0.2) X10*3/uL Abs Immat Gran (auto) (0.00-0.03) X10*3/uL Absolute Neuts (auto) (2.0-8.3) x10*3/uL Absolute Nucleated RBC (0.0-0.012) X10*3/uL Nucleated RBC % (auto) (0.0-0.2) /100WBC Hold Blue Top Sodium (135-145) mmol/L Potassium (3.3-5.1) mmol/L Chloride (96-108) mmol/L Carbon Dioxide (22-29) mmol/L Anion Gap (12-20) BUN (9-16) mg/dL Creatinine (0.5-1.4) mg/dL Estim Creat Clear Calc Estimated GFR Random Glucose (60-115) mg/dL Calcium (8.4-10.2) mg/dL Magnesium (1.6-2.6) mg/dL Total Bilirubin (0.0-1.0) mg/dL Direct Bilirubin (0.0-0.5) mg/dL AST (5-31) U/L ALT (0-31) U/L Alkaline Phosphatase (39-117) U/L Troponin I High Sens < 2.7 (<3.5-17.0) ng/L Total Protein (6.5-8.0) g/dL Albumin (3.5-5.0) g/dL Lipase (8-78) U/L TSH (0.32-4.0) uIU/mL Urine Color Urine Appearance Urine pH (5.0-9.0) Ur Specific [place] (1.005-1.025) Urine Protein (Neg-Trace) mg/dL Urine Glucose (UA) (Negative) mg/dL Urine Ketones (Negative) mg/dL Urine Blood (Negative) Urine Nitrite (Negative) Ur Leukocyte Esterase (Negative) Urine RBC (0-2) /HPF Urine WBC (0-5) /HPF Ur Squamous Epith Cells (0-2) /HPF Urine Bacteria (None Seen) Hyaline Casts (0-2) /LPF Influenza Type A (PCR) (Negative) Influenza Type B (PCR) (Negative) RSV RNA Qual (PCR) (Negative) SARS-CoV-2 RNA (RT-PCR) (Negative) Independent Interpretation I performed an independent interpretation of an: EKG Interpretation: EKG 3:20 p.m. normal sinus rhythm with sinus arrhythmia ventricular rate of 75 beats per minute, AZ interval 142, QT QTC 428/477, no ST elevation or depression. EKG performed at 5:32 p.m. atrial fibrillation with RVR ventricular rate of 140 beats per minute Radiology Impression Discussion of test interpretation with radiology: I have reviewed the radiologist's reading. Radiologist Impression: Findings: The heart size is normal. RV/LV ratio is normal. No thoracic aortic aneurysm or dissection. Enlarged pulmonary artery, 3.6cm diameter at the bifurcation. This can be seen with pulmonary artery hypertension. No pulmonary arterial filling defect. Small thyroid gland. No lymphadenopathy. No consolidation, pleural effusion or pneumothorax. Surface nodularity in the liver suggests cirrhotic morphology. Cholelithiasis. The bones are intact. Irregularity in the manubrium appears well corticated suggesting sequela of remote trauma. IMPRESSION: 1. No pulmonary emboli. This document has been electronically signed by: Mimi Mills DO on 06/14/2024 17:21:14 Dictated By: Mimi Mills MD Chronic Conditions Patient?s care impacted by: Other AFib Critical Care Time Critical Care Time Critical Care Time: Yes Total Critical Care Time: 50 Attestation: I have personally provided critical care time exclusive of time spent on separately billable procedures. Time includes review of lab data, radiology results, discussion with consultants, and monitoring for potential decompensation. Intervention performed as documented. Discharge Plan Discharge Clinical Impression: Atrial fibrillation with rapid ventricular response Patient Disposition: Admitted As Inpatient Interventions: Admission Worksheet (ED) Last Done: 06/14/24 21:14 Discharge Date/Time: 06/14/24 22:00
--- NOTE | 2024-06-14 15:13 | ECG_ITS ---
Test Reason : SHAKEYNESS Blood Pressure : */* mmHG Vent. Rate : 75 BPM Atrial Rate : 75 BPM P-R Int : 142 ms QRS Dur : 84 ms QT Int : 428 ms P-R-T Axes : 55 27 57 degrees QTcB Int : 477 ms Normal sinus rhythm with sinus arrhythmia Normal ECG When compared with ECG of 03-Aug-2019 16:10, No significant change was found Referred By: Albertina Nunez Electronically Signed By: MACEY IQBAL
[2024-06-14] MEDS: 0.9 % Sodium Chloride 1,000 ML 999 ML IV (15:38)
[2024-06-14 15:44] LABS: MANUAL DIFF FLAG NO
[2024-06-14 15:46] LABS: Basophils Percent Auto 0.5 % (0-2); Eosinophils Absolute Auto 0.1 X10*3/uL (0.0-0.4); Eosinophils Percent Auto 0.6 % (0-4); Imm Gran Abs Auto 0.03 X10*3/uL (0.00-0.03); Imm Gran Pct Auto 0.4 % (0.0-0.4); Lymphocytes Percent Auto 12.8 % (20-40); Mean Corpuscular HGB Conc 36.6 g/dl (31.0-35.0); Mean Corpuscular Hemoglobin 35.5 pg (27.0-33.0); Mean Corpuscular Volume 96.9 fL (80.0-98.0); Mean Platelet Volume 9.8 fL (9.4-12.3); Monocytes Absolute Auto 0.7 X10*3/uL (0.1-1.2); Monocytes Percent Auto 9.1 % (2-11); Neutrophils Percent Auto 76.6 % (45-73); Platelet Count 156 X10*3/uL (160-400); Red Blood Count 4.23 X10*6/uL (4.20-5.50); Red Cell Distribution Width 13.4 % (11.0-16.0); White Blood Count 7.8 X10*3/uL (4.8-10.8)
--- NOTE | 2024-06-14 16:00 | PC.NURSE ---
orthostatic vital signs obtained/completed at this time. pt reports increased dizziness w/ position change/exertion. pt noted to be tremulous w/ exertion. pt assisted back into bed. repositioned to comfort. pending CT to be completed at this time. plan of care ongoing.
[2024-06-14 16:07] LABS: Anion Gap 23 (12-20)
[2024-06-14 16:17] LABS: Alanine Aminotransferase 19 U/L (0-31); Albumin Level 4.2 g/dL (3.5-5.0); Aspartate Amino Transferase 52 U/L (5-31); Bilirubin Direct 0.6 mg/dL (0.0-0.5); Bilirubin Total 1.6 mg/dL (0.0-1.0); Blood Urea Nitrogen 10 mg/dL (9-16); Calcium 9.4 mg/dL (8.4-10.2); Carbon Dioxide 16 mmol/L (22-29); Chloride 107 mmol/L (96-108); Creatinine Clr Calc Pharmacy 123.5; Estimated Glomerular Filt Rate > 60; Glucose Random 83 mg/dL (60-115); Lipase 16 U/L (8-78); Magnesium 1.5 mg/dL (1.6-2.6); Sodium 143 mmol/L (135-145); Total Protein 7.9 g/dL (6.5-8.0)
[2024-06-14 16:35] LABS: Influenza A PCR NEGATIVE (Negative); Influenza B PCR NEGATIVE (Negative); Resp Syncy Virus RNA Qual PCR NEGATIVE (Negative); SARS COV2 PCR INHOUSE NEGATIVE (Negative)
--- NOTE | 2024-06-14 16:35 | PC.NURSE ---
pt to CT at this time.
[2024-06-14] MEDS: iohexoL 350 MG/ML 100 ML INFUS..BTL IV (16:42)
[2024-06-14 16:50] LABS: Alkaline Phosphatase 123 U/L (39-117)
[2024-06-14 16:50] LABS: Troponin-I High Sensitivity < 2.7 ng/L (<3.5-17.0)
--- NOTE | 2024-06-14 17:01 | PC.NURSE ---
pt ambulated to the restroom w/ a strong/steady gait. no use of assistive devices needed. UA obtained/sent to lab. pt pending CT results at this time. plan of care ongoing.
[2024-06-14 17:04] LABS: Appearance Urine Clear; Color Urine Yellow; Glucose Urine UA Negative (Negative); Leukocyte Esterase Urine Negative (Negative); Nitrite Urine Negative (Negative); PH 6.5 (5.0-9.0); Specific Gravity - Urine >= 1.030 (1.005-1.025); UMIC TRIGGER UACC YES; Urine Blood Negative (Negative); Urine Ketones 80 mg/dL (Negative); Urine Protein 30 (1+) mg/dL (Neg-Trace)
[2024-06-14] MEDS: Potassium Chloride Packet 20 MEQ PACKET 40 MEQ PO (17:19)
[2024-06-14] MEDS: Magnesium Sulfate/H2O 2 GM/50 ML PIGGYBACK IV (17:19)
--- NOTE | 2024-06-14 17:29 | PC.NURSE ---
medication administered per provider order. CT results pending at this time.
[2024-06-14] MEDS: dilTIAZem HCL 50 MG/10 ML VIAL 20 MG IVPUSH ×2 (17:40→18:06)
[2024-06-14 17:44] LABS: Bacteria Urine Trace (None Seen); RBC Urine 0-2 /HPF (0-2); WBC Urine 0-5 /HPF (0-5)
--- NOTE | 2024-06-14 17:45 | PC.NURSE ---
pt attempted to take a sip of PO potassium where she then became extremely nauseous and had 1 episode of nonbloody vomiting. pt seemingly uncomfortable upon assessment. pt noted to be short of breath, tremulous and diaphoretic. pt noted to have a HR of 180bpm on the team lead. hypertensive. otherwise vss and up to date. repeat ekg obtained displaying afib RVR. provider bedside to assess. additional 18gIV placed in the left hand - medication/IVF administered per provider order. effectiveness pending. pt placed on 2L via NC for supplemental O2. pt positioned upright to promote patent airway. tachypneic. respirations uneven/labored. pt educated on importance of slowing down breathing. plan of care ongoing. call teresa placed within reach.
[2024-06-14] MEDS: Lactated Ringers 1,000 ML 999 ML IV ×2 (17:52→18:36)
[2024-06-14] MEDS: dilTIAZem HCL CD 120 MG CAP.ER.DEG PO (18:02)
--- NOTE | 2024-06-14 18:02 | PC.NURSE ---
pt remains in afib RVR at this time - HR between 135-165bpm. additional cardizem administered via PO. pt tolerated well. otherwise vss and up to date. pt currently remains on 2L via NC. sob/wob noted. pt remains in upright position to promote patent airway. plan of care ongoing.
--- NOTE | 2024-06-14 18:08 | PC.NURSE ---
additional cardizem administered via IVP per provider order. effectiveness pending.
[2024-06-14 18:16] LABS: Troponin-I High Sensitivity < 2.7 ng/L (<3.5-17.0)
[2024-06-14] MEDS: dilTIAZem HCL 50 MG/10 ML VIAL 25 MG IVPUSH (18:51)
--- NOTE | 2024-06-14 18:51 | PC.NURSE ---
2:1 assist to the restroom d/t increased dizziness. unsteady gait noted. pt assisted back into bed/placed on the radiation monitor. afib RVR on the radiation monitor - HR between 125-150bpm. pt placed back on 2L via NC - sitting upright to promote patent airway. additional cardizem administered via IVP. IVF infusing per provider order. effectiveness pending. plan of care ongoing.
[2024-06-14 19:31] LABS: Thyroid Stimulating Hormone 1.64 uIU/mL (0.32-4.0)
[2024-06-14] MEDS: dilTIAZem HCL 125 MG in 0.9 % Sodium Chloride 100 ML 10 MG IVCONT (19:38)
--- NOTE | 2024-06-14 19:40 | PC.NURSE ---
cardizem drip infusing @ 10mg/hr per provider order. see MAR for titrations per [facility] protocol.
--- NOTE | 2024-06-14 19:55 | PC.NURSE ---
cardizem drip titrated to 15 mg/hr at this time. pt remains in afib - HR between 115-130bpm. pt currently denies any chest pain/palpitations/sob. pt on 2L via NC for supplemental O2. respirations remain even/unlabored. pending admission. plan of care ongoing. call teresa placed within reach.
--- NOTE | 2024-06-14 21:32 | P.HPHOSP_ITS ---
History of Present Illness Date of Service: 06/14/24 Attending physician on admission: Cody Alcantar Chief Complaint: Shortness of breath, chest discomfort, nausea Patient is a 58-year-old female with a past medical history significant for AFib on diltiazem (no anticoagulant), polycythemia vera and hemochromatosis, who presented to the ED due to sudden-onset shortness of breath, chest discomfort, nausea, dizziness and diaphoresis 1 hour prior to arrival. The patient reports that she was feeling off during the day and went for a walk in her symptoms did not really change. She then decided to go to her primary care for further evaluation and suddenly experienced shortness of breath and chest discomfort with diaphoresis, dizziness and nausea. She does have history of AFib but has never had this similar presentation in the past. She was given aspirin and nitroglycerin by EMS. Her EKG was negative and CTA also negative. She was found to have hypomagnesemia and hypokalemia. She reports that she did have a few alcoholic beverages yesterday due to the holiday but does not normally drink. She had not hydrated well today as she was not feeling great. She also reports that her allergies have been flaring and she has been taking Flonase which is new for her. While in the ED she vomited and started to have a repeat episode of the same symptoms and was found to be in AFib with RVR with a rate of 170. She was given multiple doses of diltiazem, 20 mg IV followed by 120 mg p.o., 20 mg IV again, 25 mg IV and is now on a diltiazem drip. Currently she is feeling well but is anxious about a repeat episode due to the severe nausea and feeling unwell. Review of Systems 2 Constitutional: Constitutional: Denies body ache(s), Denies chills, Denies fatigue, Denies fever(s) and Reports headache(s) Eyes: Eyes: Denies change in vision and Denies photophobia ENT: Reports headache(s) Cardiovascular: Cardiovascular: Reports chest pain, Reports rapid heart rate, Denies leg edema, Reports lightheadedness and Reports dyspnea Respiratory: Respiratory: Denies chest congestion, Denies cough, Reports dyspnea and Denies wheezing Gastrointestinal: Gastrointestinal: Denies coffee ground emesis, Denies diarrhea, Reports nausea, Reports vomiting and Denies hematemesis Genitourinary: Genitourinary: Denies dysuria and Denies urinary urgency Musculoskeletal: Musculoskeletal: Denies back pain and Denies myalgias Integumentary/Breasts: Skin/Breast: Denies rash Neurologic: Denies confusion and Reports headache(s) Psychiatric: Psychiatric: Denies confusion Endocrine: Endocrine: Denies fatigue Hematologic/Lymphatic: Hematologic/Lymphatic: Denies easy bleeding and Denies easy bruising Allergic/Immunologic: Allergic/Immunologic: Denies wheezing [facility] Medical History Polycythemia Hemochromatosis Low back pain radiating to lower extremity Atrial fibrillation Functional capacity: independent ambulation Family History Son Atrial fibrillation Social History Household Members: Significant Other Housing: House Alcohol intake: never Patient Tobacco Use Status: Never used Tobacco Smoked in Last 30 Days: No e-Cigarette/Vaping Use: Never Used Use of substances other than those prescribed or required for medical reasons: Unknown Substance Use Type: Marijuana Any prior treatment program specific to substance use: No Advance Directives: No Advance Directives Information Provided: No Do you have a plan to hurt others: No Plan Patient : No service: No Current occupational status: employed Current occupation: Customer service Current occupational exposures/hazards: No Cognitive needs: No Hearing needs: No Vision needs: Yes (glasses) Narrative: no smoking, occasional etoh, uses marijuana Meds Allergies Allergy/AdvReac Type Severity Reaction Status Date / Time bee pollen [BEE STINGS] Allergy Unknown Swelling Verified 06/14/24 15:11 Peanut Butter Allergy Unknown Swelling, Verified 06/14/24 15:11 Itching peanut Allergy Anaphylaxis Verified 06/14/24 15:11 Active Medications: Current Medications Acetaminophen (Acetaminophen 325 Mg Tablet) 975 mg PO Q6H PRN PRN Reason: Pain, Mild 1-3,fever,headache Apixaban (Apixaban 5 Mg Tablet) 5 mg PO BID BRYCE Calcium Carbonate (Calcium Carbonate 750 Mg Tab.Chew) 750 mg PO Q4H PRN PRN Reason: Heartburn Diltiazem HCl 125 mg/ Sodium (Chloride) 125 mls @ 0 mls/hr IVCONT .Q0M [facility]; Protocol Last Titration: 06/14/24 19:53 Dose: 15 mg/hr, 15 mls/hr Magnesium Hydroxide (Milk Of Magnesia 30 Ml Oral.Susp) 30 ml PO DAILY PRN PRN Reason: Constipation Melatonin (Melatonin 3 Mg Tablet) 6 mg PO BEDTIME PRN PRN Reason: Insomnia Ondansetron HCl (Ondansetron Hcl 4 Mg/2 Ml Vial) 4 mg IVPUSH Q8H PRN PRN Reason: Nausea and Vomiting Sodium Chloride (0.9 % Sodium Chloride Flush 3 Ml Syringe) 3 ml IVFLUSH QSHIFT [facility] Home Medications ?Medication ?Instructions ?Recorded ?Confirmed ?Last Taken ?Type multivitamin 1 tab PO DAILY 12/04/23 01/07/24 Unknown History Physical Exam 2 Vital Signs and Narrative: Vital Signs: Last Vital Signs Temp 98.1 F 06/14/24 19:57 Pulse 111 H 06/14/24 19:57 Resp 20 06/14/24 19:57 BP 133/84 06/14/24 19:57 Pulse Ox 98 06/14/24 19:57 O2 Del Method Nasal Cannula 06/14/24 19:57 O2 Flow Rate 2 06/14/24 19:57 BMI result Body Mass Index 30.0 General: AOx3, no acute distress Resp: CTA bilaterally CVS: Irregularly irregular, tachycardic GI: +BS, NT, no distention Skin: Warm, dry Neuro: Cranial nerves II-XII grossly intact bilaterally. Motor grossly intact bilaterally Extremities: No lower extremity edema Psych: Appropriate affect Const: General: No confusion Orientation/consciousness: No confusion Eyes: Direct Ophthalmoscopy: No photophobia Neuro: General: No confusion Results Labs 06/14/24 15:33 06/14/24 15:33 Labs: Laboratory Results - last 24 hr 06/14/24 06/14/24 15:33 16:52 MCV 96.9 MCH 35.5 H MCHC 36.6 H RDW 13.4 Plt Count 156 L MPV 9.8 Immature Gran % (Auto) 0.4 Neut % (Auto) 76.6 H Lymph % (Auto) 12.8 L [place] % (Auto) 9.1 Eos % (Auto) 0.6 Baso % (Auto) 0.5 Lymph # (Auto) 1.0 L [place] # (Auto) 0.7 Eos # (Auto) 0.1 Baso # (Auto) 0.0 Abs Immat Gran (auto) 0.03 Absolute Neuts (auto) 6.0 Absolute Nucleated RBC 0.000 Nucleated RBC % (auto) 0.0 Hold Blue Top SEE NOTE Anion Gap 23 H Estim Creat Clear Calc 123.5 Estimated GFR > 60 Random Glucose 83 Calcium 9.4 Magnesium 1.5 L Total Bilirubin 1.6 H Direct Bilirubin 0.6 H AST 52 H ALT 19 Alkaline Phosphatase 123 H Total Protein 7.9 Albumin 4.2 Lipase 16 TSH 1.64 Urine Color Yellow Urine Appearance Clear Urine pH 6.5 Ur Specific [place] >= 1.030 H Urine Protein 30 (1+) H Urine Glucose (UA) Negative Urine Ketones 80 Urine Blood Negative Urine Nitrite Negative Ur Leukocyte Esterase Negative Urine RBC 0-2 Urine WBC 0-5 Ur Squamous Epith Cells 3-5 Urine Bacteria Trace Hyaline Casts 6-10 Influenza Type A (PCR) NEGATIVE Influenza Type B (PCR) NEGATIVE RSV RNA Qual (PCR) NEGATIVE SARS-CoV-2 RNA (RT-PCR) NEGATIVE Assessment and Plan (1) Atrial fibrillation with RVR: Status: Acute (2) Hypokalemia: Status: Acute (3) Hypomagnesemia: Status: Acute (4) Metabolic acidosis: Status: Acute (5) Elevated LFTs: Status: Acute Plan Patient is a 58-year-old female with a past medical history significant for AFib on diltiazem (no anticoagulant), polycythemia vera and hemochromatosis, who presented to the ED due to sudden-onset shortness of breath, chest discomfort, nausea, dizziness and diaphoresis 1 hour prior to arrival. While in the ED she vomited and started to have a repeat episode of the same symptoms and was found to be in AFib with RVR with a rate of 170. She was given multiple doses of diltiazem, 20 mg IV followed by 120 mg p.o., 20 mg IV again, 25 mg IV and is now on a diltiazem drip. AFib with RVR - EKG with AFib with RVR - troponin x2 negative - TSH normal - CTA negative for PE - UA negative - COVID/flu/RSV negative - electrolytes with hypokalemia and hypomagnesemia, repleted - given diltiazem, 20 mg IV followed by 120 mg p.o., 20 mg IV again, 25 mg IV and is now on a diltiazem drip, continue per protocol - cardiology consult - start Eliquis 5 mg b.i.d. Hypokalemia/hypomagnesemia - given potassium 40 mEq p.o. and magnesium 2 g IV in ED - received 3 L IV fluids - recheck BMP now - follow BMP daily and magnesium Metabolic acidosis - secondary to dehydration and hypoperfusion - given 3 L IV fluids in ED - monitor BMP Elevated LFTs - patient with hemochromatosis - CTA with incidental finding of possible cirrhosis - follow-up outpatient with Gastroenterology Full code VTE prophylaxis: Eliquis Patient with AFib with RVR, complicated by hypokalemia and hypomagnesemia, requiring admission for at least 2 midnight stay for rate control, monitoring and Cardiology consultation. Quality Stroke Does the patient have a stroke diagnosis?: No VTE Prior VTE?: No VTE Risk Level:: Medical - moderate - high VTE Device Contraindication: Treatment Not Indicated VTE Drug Contraindication: N/A - Med Ordered
[2024-06-14] MEDS: Apixaban 5 MG TABLET PO (22:06)
[2024-06-14] MEDS: Acetaminophen 325 MG TABLET 975 MG PO (22:48)
[2024-06-14] MEDS: ondansetron HCL 4 MG/2 ML VIAL IVPUSH (22:48)
[2024-06-14 23:45] LABS: Anion Gap 19 (12-20); Blood Urea Nitrogen 7 mg/dL (9-16); Calcium 8.6 mg/dL (8.4-10.2); Carbon Dioxide 18 mmol/L (22-29); Chloride 108 mmol/L (96-108); Creatinine Clr Calc Pharmacy 126.2; Estimated Glomerular Filt Rate > 60; Glucose Random 91 mg/dL (60-115); Potassium 3.4 mmol/L (3.3-5.1); Sodium 142 mmol/L (135-145)
[2024-06-15 03:48] VITALS: BP 121/73; PULSE 99; RESP 16; TEMP 36.3; O2SAT 100
[2024-06-15 07:19] VITALS: BP 111/67; PULSE 99; RESP 20; TEMP 36.7; O2SAT 99
[2024-06-15 07:47] LABS: Hematocrit 38.2 % (37.0-47.0); Hemoglobin 13.6 g/dl (12.0-16.0); Mean Corpuscular HGB Conc 35.6 g/dl (31.0-35.0); Mean Corpuscular Hemoglobin 35.3 pg (27.0-33.0); Mean Corpuscular Volume 99.2 fL (80.0-98.0); Mean Platelet Volume 10.2 fL (9.4-12.3); Platelet Count 159 X10*3/uL (160-400); Red Blood Count 3.85 X10*6/uL (4.20-5.50); Red Cell Distribution Width 13.7 % (11.0-16.0); White Blood Count 7.2 X10*3/uL (4.8-10.8)
[2024-06-15 08:00] LABS: Anion Gap 15 (12-20); Blood Urea Nitrogen 7 mg/dL (9-16); Calcium 8.5 mg/dL (8.4-10.2); Carbon Dioxide 22 mmol/L (22-29); Chloride 106 mmol/L (96-108); Creatinine Clr Calc Pharmacy 132.7; Estimated Glomerular Filt Rate > 60; Glucose Random 88 mg/dL (60-115); Magnesium 1.6 mg/dL (1.6-2.6); Potassium 3.3 mmol/L (3.3-5.1); Sodium 140 mmol/L (135-145)
--- NOTE | 2024-06-15 08:26 | CA_ITS ---
Transthoracic Echocardiogram Amended Patient (Last, First, Middle): Alie Arriaga, Gender: Female Date of : 1965 Age: 58 Procedure Date: 06/15/2024 Procedure Type: Transthoracic Echocardiogram Location: [facility] [place] Height: 177.8 cm Weight: 95.71 kg BSA: 2.14 m2 Heart Rate: bpm BP: 111 / 67 mmHg Freight Brakeman: SB Referring MD: Lasha Leslie MD Symptoms: AFib Study Quality: Adequate w contrast ECG Rhythm: Atrial Fibrillation Conclusions: - The left ventricular systolic function is normal. The visually estimated ejection fraction is between 60-65%. - There is moderate septal asymmetric hypertrophy. - The left atrium is mildly dilated. - There is mild calcification of the aortic valve. - There is mild dilatation of the ascending aorta measuring 4.50 cm. Findings Procedure Information Contrast agent, definity, is being given per protocol without apparent complications. Left Ventricle Normal left ventricular cavity size. The left ventricular systolic function is normal. The visually estimated ejection fraction is between 60-65%. There is no evidence of regional wall motion abnormalities. Diastolic function is indeterminate on the basis of available data. There is moderate septal asymmetric hypertrophy. Right Ventricle Normal right ventricular cavity size and systolic function. Atria The left atrium is mildly dilated. The right atrium is normal in size. Aortic Valve There is a normal trileaflet aortic valve. There is mild calcification of the aortic valve. There is no aortic valve stenosis. There is no aortic valve regurgitation. Mitral Valve The mitral valve appears normal. There is trace mitral valve regurgitation. There is no mitral valve stenosis. Pulmonic Valve The pulmonic valve is likely normal. Tricuspid Valve There is mild tricuspid valve regurgitation. There is no evidence of pulmonary hypertension. Great Vessels There is mild dilatation of the ascending aorta measuring 4.50 cm. Small plaque is seen in the sino tubular ridge. Venous The inferior vena cava is mildly dilated and collapses less than 50% with inspiration. Pericardium/Pleural There is no evidence of pericardial effusion. Prior Study Comparison No prior study available for comparison. Measurements 2D Linear Measurements IVSd: 1.53 0.6-0.9/0.6-1.0 cm LVIDd: 3.88 3.9-5.3/4.2-5.9 cm LVIDd Index: 1.81 2.4-3.2/2.2-3.1 cm/m2 LVIDs: 2.41 2.0-3.6 cm LVPWd: 0.80 0.7-1.1 cm LA Diam: 4.30 2.7-3.8/3.0-4.0 cm LAIDs Index: 2.01 1.5-2.3 cm/m2 LV Mass: 188.80 67-162/88-224 g LV Mass Index: 88.22 43-95/49-115 g/m2 LVOT Diam: 2.60 3.0+(-)1.3 cm 2D Volumes LA Vol: 38.40 2D Systolic Function EF 4C: 59.60 >55% EF 2C: 70.20 >55% EF BiP: 66.50 >55% Mitral Valve MV Pk E: 0.82 MV Decel Time: 163.00 E'Lateral: 10.30 E'Medial: 8.68 E/E' Med: 9.50 E/E' Lat: 8.00 Aortic Valve AoV Pk Hawk: 1.62 AoV Mn Hawk: 1.17 AoV VTI: 0.30 AoV Pk Grad: 10.00 Aov Mn Grad: 6.00 IGLESIA Cont.VTI: 3.06 LVOT LVOT Pk Hawk: 0.87 LVOT Mn Hawk: 0.65 LVOT VTI: 0.17 LVOT Pk Grad: 3.00 LVOT Mn Grad: 2.00 LVOT Diam: 2.60 LVOT Area: 5.31 Diastolic Function MV Pk E: 0.82 E'Medial: 8.68 E/E' Med: 9.50 E' Laterial: 10.30 E/E' Lat: 8.00 Right Ventricle TAPSE (mm): 20.40 TVS' Hawk: 13.80 Tricuspid Valve TR Pk Hawk: 2.10 TR Pk Grad: 18.00 RA Press: 15.00 RVSP: 33.00 Great Vessels Aorta Sinus of Valsalva: 4.10 2.0-3.5 cm Ao Asc: 4.50 2.1-3.4 cm Pulmonary Valve PV Pk Hawk: 1.09 Peak PV Grad: 5.00 Updated in Other Vendor System with Status of Final Lasha Leslie MD electronically signed on 06/15/2024 12:20:01 PM with status of Final
--- NOTE | 2024-06-15 08:39 | MHC.CM.PN ---
CM met with Patient at bedside. Patient is listed as, self-pay; a referral has been made to [facility], via Email. Patient lives in a house with her /HCP/Dell and she is functionally independent. Home self care, pending Cardiology Consult, is Patient's goal and CM has initiated and will follow for dc planning. PCP is Dr. Joyce Salvador and Patient's or Girlfriend/Letitia will transport to home at time of dc.
[2024-06-15] MEDS: Acetaminophen 325 MG TABLET 975 MG PO (09:04)
[2024-06-15] MEDS: Apixaban 5 MG TABLET PO (09:05)
[2024-06-15] MEDS: 0.9 % Sodium Chloride Flush 3 ML SYRINGE IVFLUSH (09:06)
--- NOTE | 2024-06-15 09:21 | PM.CNCAR ---
History of Present Illness History of Present Illness Date of Service: 06/15/24 Chief complaint: A fib with RVR Narrative: This is a cardiology consultation regarding atrial fibrillation. Previously seen by nurse practitioner in clinic. According to that, it seems that patient was diagnosed to have atrial fibrillation in July of 2023. She was seen in the clinic and it was recommended to have an echocardiogram and home sleep study but it does not appear that these were followed through. After that, patient states that she has had intermittent palpitations off and on at different times. However, they are fairly short lasting and did not last anymore than a few minutes to an hour. This time, it lasted longer and that led to presentation. Per discussion with patient as well as review of H&P, apparently patient was just not feeling good during the day. Then she decided to go to primary care for evaluation and then she felt short of breath and some other symptoms like chest discomfort, diaphoresis, dizziness, nausea and this led to ER evaluation. Initially, it seems that she was not sinus rhythm but then she went into atrial fibrillation rapid rate. Then she got multiple dose of diltiazem and then put on a drip. She is now admitted to the floor. Overall, she states she feels better. However, she could still feel some palpitations. No other complaints. Review of Systems Review of Systems: Yes all other systems are reviewed and are negative Constitutional: Constitutional: Reports as per HPI and Reports no additional constitutional complaints Eyes: Eyes: Reports as per HPI and Denies no additional eye complaints ENT: Denies system reviewed and no additional complaints, except as documented and Reports as per HPI Cardiovascular: Cardiovascular: Reports as per HPI, Reports no additional cardiovascular complaints, Denies acrocyanosis, Denies cool extremities, Denies chest pain, Denies leg edema, Denies lightheadedness, Reports palpitations and Denies dyspnea Respiratory: Respiratory: Reports as per HPI, Denies no additional respiratory complaints and Denies dyspnea Gastrointestinal: Gastrointestinal: Reports as per HPI and Denies no additional gastrointestinal complaints Genitourinary: Genitourinary: Reports as per HPI Musculoskeletal: Musculoskeletal: Reports no additional musculoskeletal complaints and Reports as per HPI Integumentary/Breasts: Skin/Breast: Reports system reviewed and no additional complaints, except as docu Neurologic: Reports system reviewed and no additional complaints, except as documented and Reports as per HPI Psychiatric: Psychiatric: Reports no additional psychiatric complaints and Reports as per HPI Endocrine: Endocrine: Reports no additional endocrine complaints, Reports as per HPI and Reports palpitations Hematologic/Lymphatic: Hematologic/Lymphatic: Reports no additional hematologic/lymphatic complaints and Reports as per HPI Allergic/Immunologic: Allergic/Immunologic: Reports no additional allergic/immunologic complaints and Reports as per HPI PMFSH Past Medical History Medical History Polycythemia Hemochromatosis Low back pain radiating to lower extremity Atrial fibrillation Family History Family History Son Atrial fibrillation Social History Social History Household Members: Spouse Housing: House Alcohol intake: never Patient Tobacco Use Status: Never used Tobacco Smoked in Last 30 Days: No e-Cigarette/Vaping Use: Never Used Use of substances other than those prescribed or required for medical reasons: No Substance Use Type: Marijuana Currently Displaying Signs/Symptoms of Drug Intoxication Withdrawal: No Any prior treatment program specific to substance use: No Have you been hit, kicked, punched, or otherwise hurt by someone within the past year? If so, by whom?: No Do you feel safe in your current relationship?: Yes Is there a partner from a previous relationship who is making you feel unsafe now?: No Are you made to feel afraid or neglected: No Advance Directives: No Advance Directives Information Provided: No Do you have a plan to hurt others: No Plan Recently lost weight without trying: Unsure Nutrition Risks: No Nutritional Risk Patient : No Poor oral hygiene: No service: No Current occupational status: employed Current occupation: Customer service Current occupational exposures/hazards: No Cognitive needs: No Hearing needs: No Vision needs: Yes (glasses) Meds Allergies Allergy/AdvReac Type Severity Reaction Status Date / Time bee pollen [BEE STINGS] Allergy Unknown Swelling Verified 06/14/24 15:11 Peanut Butter Allergy Unknown Swelling, Verified 06/14/24 15:11 Itching peanut Allergy Anaphylaxis Verified 06/14/24 15:11 Active Medications: Current Medications Acetaminophen (Acetaminophen 325 Mg Tablet) 975 mg PO Q6H PRN PRN Reason: Pain, Mild 1-3,fever,headache Last Admin: 06/15/24 09:04 Dose: 975 mg Apixaban (Apixaban 5 Mg Tablet) 5 mg PO BID [facility] Last Admin: 06/15/24 09:05 Dose: 5 mg Diltiazem HCl 125 mg/ Sodium (Chloride) 125 mls @ 0 mls/hr IVCONT .Q0M [facility]; Protocol Last Titration: 06/15/24 02:39 Dose: 0 mg/hr, 0 mls/hr Magnesium Hydroxide (Milk Of Magnesia 30 Ml Oral.Susp) 30 ml PO DAILY PRN PRN Reason: Constipation Melatonin (Melatonin 3 Mg Tablet) 6 mg PO BEDTIME PRN PRN Reason: Insomnia Ondansetron HCl (Ondansetron Hcl 4 Mg/2 Ml Vial) 4 mg IVPUSH Q8H PRN PRN Reason: Nausea and Vomiting Last Admin: 06/14/24 22:48 Dose: 4 mg Sodium Chloride (0.9 % Sodium Chloride Flush 3 Ml Syringe) 3 ml IVFLUSH QSHIFT [facility] Last Admin: 06/15/24 09:06 Dose: 3 ml Home Medications ?Medication ?Instructions ?Recorded ?Confirmed ?Last Taken ?Type multivitamin 1 tab PO DAILY 12/04/23 01/07/24 Unknown History Physical Exam Vital Signs: Vital Signs: Last Vital Signs Temp 98.1 F 06/15/24 07:19 Pulse 99 06/15/24 07:19 Resp 20 06/15/24 07:19 BP 111/67 06/15/24 07:19 Pulse Ox 99 06/15/24 07:19 O2 Del Method Room Air 06/15/24 07:19 O2 Flow Rate 2 06/14/24 19:57 BMI result Body Mass Index 30.4 Const: General: comfortable and no acute distress Orientation/consciousness: patient oriented x3 HEENT: Other: Unremarkable Head: Yes normal to inspection Neck: Neck: Yes normal visual inspection Chest: Chest palpation & inspection: normal inspection of the chest Resp: Auscultation: clear to auscultation bilaterally Cardio: Palpation: normal PMI Heart sounds: S1 normal heart sound present, S2 normal heart sound present, no gallops, no murmurs and no rubs GI: Palpation (GI): Soft to palpation Back/Spine/Pelvis: Other: unremarkable Skin: General skin exam: no rashes or lesions noted Neuro: General: patient oriented x3 Extrem: General: Yes normal to inspection Psych: Mental Status: mental status grossly normal Objective Labs and Meds 06/15/24 06:48 06/15/24 06:48 Lab results: Laboratory Results - last 24 hr 06/14/24 06/14/24 06/14/24 15:33 16:06 16:52 WBC 7.8 RBC 4.23 Hgb 15.0 Hct 41.0 MCV 96.9 MCH 35.5 H MCHC 36.6 H RDW 13.4 Plt Count 156 L MPV 9.8 Immature Gran % (Auto) 0.4 Neut % (Auto) 76.6 H Lymph % (Auto) 12.8 L [place] % (Auto) 9.1 Eos % (Auto) 0.6 Baso % (Auto) 0.5 Lymph # (Auto) 1.0 L [place] # (Auto) 0.7 Eos # (Auto) 0.1 Baso # (Auto) 0.0 Abs Immat Gran (auto) 0.03 Absolute Neuts (auto) 6.0 Absolute Nucleated RBC 0.000 Nucleated RBC % (auto) 0.0 Hold Blue Top SEE NOTE Sodium 143 Potassium 3.0 L Chloride 107 Carbon Dioxide 16 L Anion Gap 23 H BUN 10 Creatinine 0.62 Estim Creat Clear Calc 123.5 Estimated GFR > 60 Random Glucose 83 Calcium 9.4 Magnesium 1.5 L Total Bilirubin 1.6 H Direct Bilirubin 0.6 H AST 52 H ALT 19 Alkaline Phosphatase 123 H Troponin I High Sens < 2.7 Total Protein 7.9 Albumin 4.2 Lipase 16 TSH 1.64 Urine Color Yellow Urine Appearance Clear Urine pH 6.5 Ur Specific [place] >= 1.030 H Urine Protein 30 (1+) H Urine Glucose (UA) Negative Urine Ketones 80 Urine Blood Negative Urine Nitrite Negative Ur Leukocyte Esterase Negative Urine RBC 0-2 Urine WBC 0-5 Ur Squamous Epith Cells 3-5 Urine Bacteria Trace Hyaline Casts 6-10 Influenza Type A (PCR) NEGATIVE Influenza Type B (PCR) NEGATIVE RSV RNA Qual (PCR) NEGATIVE SARS-CoV-2 RNA (RT-PCR) NEGATIVE 06/14/24 06/14/24 06/15/24 17:39 23:18 06:48 WBC 7.2 RBC 3.85 L Hgb 13.6 Hct 38.2 MCV 99.2 H MCH 35.3 H MCHC 35.6 H RDW 13.7 Plt Count 159 L MPV 10.2 Immature Gran % (Auto) Neut % (Auto) Lymph % (Auto) [place] % (Auto) Eos % (Auto) Baso % (Auto) Lymph # (Auto) [place] # (Auto) Eos # (Auto) Baso # (Auto) Abs Immat Gran (auto) Absolute Neuts (auto) Absolute Nucleated RBC 0.000 Nucleated RBC % (auto) 0.0 Hold Blue Top Sodium 142 140 Potassium 3.4 3.3 Chloride 108 106 Carbon Dioxide 18 L 22 Anion Gap 19 15 BUN 7 L 7 L Creatinine 0.61 0.58 Estim Creat Clear Calc 126.2 132.7 Estimated GFR > 60 > 60 Random Glucose 91 88 Calcium 8.6 D 8.5 Magnesium 1.6 Total Bilirubin Direct Bilirubin AST ALT Alkaline Phosphatase Troponin I High Sens < 2.7 Total Protein Albumin Lipase TSH Urine Color Urine Appearance Urine pH Ur Specific [place] Urine Protein Urine Glucose (UA) Urine Ketones Urine Blood Urine Nitrite Ur Leukocyte Esterase Urine RBC Urine WBC Ur Squamous Epith Cells Urine Bacteria Hyaline Casts Influenza Type A (PCR) Influenza Type B (PCR) RSV RNA Qual (PCR) SARS-CoV-2 RNA (RT-PCR) ECG Interpretation: EKG from 06/14 shows sinus rhythm and sinus arrhythmia. In the follow-up EKG about 2 hours later, atrial fibrillation at a rate of 140/Min. Nonspecific ST-T changes laterally. Septal infarct changes or mainly because of body habitus. Assessment and Plan (1) Atrial fibrillation with RVR: Status: Acute Plan High sensitivity troponin within range. Thyroid function is normal. On telemetry, she is in rate controlled atrial fibrillation. Home meds listed as diltiazem CD 120 mg daily. We can resume that. We will check echocardiogram. If normal LVEF and no structural findings, possibly try flecainide. There is no prior history of hypertension but it seems that when she came in her blood pressure was indeed high. Hence not clear if she truly has hypertension or not but today's but seems normal. Several other blood pressures last year were also normal. Hence suspect CHADS2 VASC score is only 1 for female sex. Will review echo for any associated abnormalities to see if anticoagulation is needed. Will follow with you. Procedures Date of Service Date of Service: 06/15/24
--- NOTE | 2024-06-15 10:24 | PHA.MEDREC ---
Pharmacy Consult ? Medication Reconciliation Pharmacy has completed the medication reconciliation. Pt was a good historian, could name all medications, knew all frequencies, most of the doses, and matched claims.
[2024-06-15 10:56] VITALS: BP 124/79; PULSE 98; RESP 18; TEMP 36.6; O2SAT 99
--- NOTE | 2024-06-15 13:24 | PM.DS ---
DS: Providers Provider Date of Service: 06/15/24 Date of admission: 06/14/24 20:37 Date of discharge: 06/15/24 Primary care physician: Joyce Salvador MD Consults: 06/14/24 21:25 Consult to Cardiology Routine Consulting Provider: [facility] Reason for consultation: a fib with RVR Has provider been notified: No DS: Diagnosis Discharge Diagnosis (1) Atrial fibrillation with RVR: Status: Acute DS: Summary Hospital Course Hospital Course: 58-year-old female with a past medical history significant for AFib on diltiazem (no anticoagulant), polycythemia vera and hemochromatosis, who presented to the ED due to sudden-onset shortness of breath, chest discomfort, nausea, dizziness and diaphoresis 1 hour prior to arrival. The patient reports that she was feeling off during the day and went for a walk in her symptoms did not really change. She then decided to go to her primary care for further evaluation and suddenly experienced shortness of breath and chest discomfort with diaphoresis, dizziness and nausea. She does have history of AFib but has never had this similar presentation in the past. She was given aspirin and nitroglycerin by EMS. Her EKG was negative and CTA also negative. She was found to have hypomagnesemia and hypokalemia. She reports that she did have a few alcoholic beverages yesterday due to the holiday but does not normally drink. She had not hydrated well today as she was not feeling great. She also reports that her allergies have been flaring and she has been taking Flonase which is new for her. While in the ED she vomited and started to have a repeat episode of the same symptoms and was found to be in AFib with RVR with a rate of 170. She was given multiple doses of diltiazem, 20 mg IV followed by 120 mg p.o., 20 mg IV again, 25 mg IV and is now on a diltiazem drip. Hospital Course Patient admitted to telemetry where she remained in atrial fibrillation. Cardizem drip was eventually DC secondary to adequate rate control. She was seen in consultation by Cardiology who ordered a 2D echo which was read by Dr. Leslie. At this time his recommendation would be to DC home on Eliquis/Toprol-XL and follow up the office for Holter monitor and med management Time Attestation Discharge Coordination Time (in mins): 35 Quality: Safe Use of Opioids Does Pt have an Active Cancer Diagnosis on the Problem List?: No Quality: Stroke Does the patient have a stroke diagnosis?: No Physical Exam Vital Signs: Vital Signs: Last Vital Signs Temp 97.9 F 06/15/24 10:56 Pulse 98 06/15/24 10:56 Resp 18 06/15/24 10:56 BP 124/79 06/15/24 10:56 Pulse Ox 99 06/15/24 10:56 O2 Del Method Room Air 06/15/24 10:56 O2 Flow Rate 2 06/14/24 19:57 BMI result Body Mass Index 30.4 Const: Other: Awake alert no acute distress Resp: Other: Clear to auscultation bilaterally no rales rhonchi or wheezes Cardio: Other: No S4; positive S1-S2; no S3 murmurs rubs or gallops (irregularly irregular) Extrem: Other: No edema bilaterally DS: Data Data Completed and Pending Labs on day of discharge: Laboratory Results - last 24 hr 06/14/24 06/14/24 06/14/24 15:33 16:06 16:52 WBC 7.8 RBC 4.23 Hgb 15.0 Hct 41.0 MCV 96.9 MCH 35.5 H MCHC 36.6 H RDW 13.4 Plt Count 156 L MPV 9.8 Immature Gran % (Auto) 0.4 Neut % (Auto) 76.6 H Lymph % (Auto) 12.8 L [place] % (Auto) 9.1 Eos % (Auto) 0.6 Baso % (Auto) 0.5 Lymph # (Auto) 1.0 L [place] # (Auto) 0.7 Eos # (Auto) 0.1 Baso # (Auto) 0.0 Abs Immat Gran (auto) 0.03 Absolute Neuts (auto) 6.0 Absolute Nucleated RBC 0.000 Nucleated RBC % (auto) 0.0 Hold Blue Top SEE NOTE Sodium 143 Potassium 3.0 L Chloride 107 Carbon Dioxide 16 L Anion Gap 23 H BUN 10 Creatinine 0.62 Estim Creat Clear Calc 123.5 Estimated GFR > 60 Random Glucose 83 Calcium 9.4 Magnesium 1.5 L Total Bilirubin 1.6 H Direct Bilirubin 0.6 H AST 52 H ALT 19 Alkaline Phosphatase 123 H Troponin I High Sens < 2.7 Total Protein 7.9 Albumin 4.2 Lipase 16 TSH 1.64 Urine Color Yellow Urine Appearance Clear Urine pH 6.5 Ur Specific [place] >= 1.030 H Urine Protein 30 (1+) H Urine Glucose (UA) Negative Urine Ketones 80 Urine Blood Negative Urine Nitrite Negative Ur Leukocyte Esterase Negative Urine RBC 0-2 Urine WBC 0-5 Ur Squamous Epith Cells 3-5 Urine Bacteria Trace Hyaline Casts 6-10 Influenza Type A (PCR) NEGATIVE Influenza Type B (PCR) NEGATIVE RSV RNA Qual (PCR) NEGATIVE SARS-CoV-2 RNA (RT-PCR) NEGATIVE 06/14/24 06/14/24 06/15/24 17:39 23:18 06:48 WBC 7.2 RBC 3.85 L Hgb 13.6 Hct 38.2 MCV 99.2 H MCH 35.3 H MCHC 35.6 H RDW 13.7 Plt Count 159 L MPV 10.2 Immature Gran % (Auto) Neut % (Auto) Lymph % (Auto) [place] % (Auto) Eos % (Auto) Baso % (Auto) Lymph # (Auto) [place] # (Auto) Eos # (Auto) Baso # (Auto) Abs Immat Gran (auto) Absolute Neuts (auto) Absolute Nucleated RBC 0.000 Nucleated RBC % (auto) 0.0 Hold Blue Top Sodium 142 140 Potassium 3.4 3.3 Chloride 108 106 Carbon Dioxide 18 L 22 Anion Gap 19 15 BUN 7 L 7 L Creatinine 0.61 0.58 Estim Creat Clear Calc 126.2 132.7 Estimated GFR > 60 > 60 Random Glucose 91 88 Calcium 8.6 D 8.5 Magnesium 1.6 Total Bilirubin Direct Bilirubin AST ALT Alkaline Phosphatase Troponin I High Sens < 2.7 Total Protein Albumin Lipase TSH Urine Color Urine Appearance Urine pH Ur Specific [place] Urine Protein Urine Glucose (UA) Urine Ketones Urine Blood Urine Nitrite Ur Leukocyte Esterase Urine RBC Urine WBC Ur Squamous Epith Cells Urine Bacteria Hyaline Casts Influenza Type A (PCR) Influenza Type B (PCR) RSV RNA Qual (PCR) SARS-CoV-2 RNA (RT-PCR) Discharge Plan Discharge Anticipated Discharge Date/Time: 06/15/24 13:09 Patient Disposition: Home, Self-Care Discharge Diagnosis: Atrial fibrillation with RVR Referrals: Joyce Salvador MD [Primary Care Provider] - 1 Week Discharge Medications: New Eliquis 5 mg Tablet 5 mg PO BID Qty: 60 1RF metoprolol succinate [Toprol XL] 25 mg tablet extended release 24 hr 25 mg PO DAILY Qty: 30 1RF Continued diltiazem HCl [Cardizem CD] 120 mg capsule,extended release 24hr 120 mg PO DAILY 90 Days Qty: 90 1RF aspirin 81 mg capsule 81 mg PO DAILY Qty: 30 0RF folic acid 1 mg Tablet 1 mg PO DAILY Qty: 30 3RF acetaminophen 500 mg Tablet 1,000 mg PO Q6H PRN (Reason: Pain) fluticasone propionate [Flonase Allergy Relief] 50 mcg/actuation [place],Suspension 2 spray INTRANASAL DAILY PRN (Reason: allergies) Rx Instructions: administer into each nostril multivitamin Tablet 1 tab PO DAILY Discharge Orders: Discharge Order (Routine); Ordered 06/15/24 Ordered By: Te Benton Diet: Advance to usual diet Activity on Discharge: As tolerated Stand Alone Forms: Patient Portal Discharge page Print Language: [place] Care Plan Goals: Continue all your medicines as taken prior to hospitalization Health Concerns: Toprol-XL 25 mg daily as well as Eliquis 5 mg twice daily has been added to your regimen Plan of Treatment: Dr. Leslie's office will call you to arrange follow up and a Holter monitor Assessment: See discharge summary
[2024-06-15] MEDS: Oxymetazoline HCl 0.05 % Nasal 15 ML SPRAY 2 SPRAY NOSTRIL-B (13:34)
--- NOTE | 2024-06-15 13:44 | MHC.CM.PN ---
Pt is medically cleared for discharge home self-care, pt has arranged her own transport home.
== END 2024-06-15 14:35 | disposition home or self-care (01) | DRG 309 ==
LOC: HO.ED 17:35 → HO.EDOVER 20:49 → HO.IMC 21:12
PROVIDERS: Physician Assistant Medical; Admitting Provider Physician Assistant; Emergency Provider Emergency Medicine; PCP Internal Medicine; Visit Provider Hospitalist
DX: I48.91 Unspecified atrial fibrillation (principal); E87.20 Acidosis, unspecified; D45 Polycythemia vera; E83.42 Hypomagnesemia; Z91.198 Patient's noncompliance with other medical treatment and regimen for other reason; E87.6 Hypokalemia; T46.1X6A Underdosing of calcium-channel blockers, initial encounter; E83.119 Hemochromatosis, unspecified; E86.0 Dehydration; Z20.822 Contact with and (suspected) exposure to COVID-19; Z79.899 Other long term (current) drug therapy
CPT/HCPCS: 0241U; 36415; 71275; 80048; 80076; 81001; 81003; 83690; 83735; 84443; 84484; 85025; 85027; 93005; 93306; 99285; J2405; J3475; J7120; Q9957; Q9967

== ENCOUNTER → 2024-06-14 15:29 | Outpatient (BNV) | payer SELFPAY | PROVIDERS: Emergency Provider Emergency Medicine; PCP Internal Medicine; Visit Provider Radiology Diagnostic Radiology | DX: R55 Syncope and collapse (principal) | CPT/HCPCS: 71275 ==

== ENCOUNTER 2024-06-14 20:37 | Outpatient (BNV) | payer SELFPAY | END 2024-06-15 08:26 | PROVIDERS: Admitting Provider Physician Assistant; Emergency Provider Emergency Medicine; PCP Internal Medicine; Visit Provider Internal Medicine | DX: I42.2 Other hypertrophic cardiomyopathy (principal); I35.8 Other nonrheumatic aortic valve disorders; I36.1 Nonrheumatic tricuspid (valve) insufficiency | CPT/HCPCS: 93306 ==

== ENCOUNTER → 2024-06-14 20:37 | Outpatient (BNV) | payer SELFPAY | PROVIDERS: Admitting Provider Physician Assistant; Emergency Provider Emergency Medicine; PCP Internal Medicine; Visit Provider Hospitalist | DX: I48.91 Unspecified atrial fibrillation (principal) | CPT/HCPCS: 99223; 99239 ==

== ENCOUNTER → 2024-06-14 20:37 | Outpatient (BNV) | payer SELFPAY | PROVIDERS: Admitting Provider Physician Assistant; Emergency Provider Emergency Medicine; PCP Internal Medicine; Visit Provider Internal Medicine | DX: I48.91 Unspecified atrial fibrillation (principal) | CPT/HCPCS: 93010; 99223 ==